=== PATIENT | female | born 1985 | race Caucasian/White ===

== ENCOUNTER 2016-09-19 15:30 | Outpatient (CLI) | payer OTHER | END 2016-09-19 15:31 | disposition home or self-care (01) | DX: N20.0 Calculus of kidney (principal) ==

== ENCOUNTER 2016-11-11 08:00 | Outpatient (CLI) | payer OTHER | END 2016-11-11 08:01 | disposition home or self-care (01) | DX: R06.02 Shortness of breath (principal) ==

== ENCOUNTER 2016-11-17 08:00 | Outpatient (CLI) | payer OTHER | END 2016-11-17 08:01 | disposition home or self-care (01) | DX: I11.9 Hypertensive heart disease without heart failure (principal); R06.02 Shortness of breath ==

== ENCOUNTER 2016-11-18 13:56 | Outpatient (CLI) | payer OTHER | END 2016-11-18 13:57 | disposition home or self-care (01) | DX: I11.9 Hypertensive heart disease without heart failure (principal) ==

== ENCOUNTER 2016-12-16 17:30 | Outpatient (CLI) | payer OTHER ==
[2016-12-16] MEDS ORDERED: IOPAMIDOL-300 100 ML VIAL IVP ONE (18:46)
== END 2016-12-16 17:31 | disposition home or self-care (01) ==
DX: N20.0 Calculus of kidney (principal)
CPT/HCPCS: 74170; Q9967

== ENCOUNTER 2017-01-08 08:00 | Outpatient (CLI) | payer MEDICAID, OTHER | END 2017-01-08 23:59 | LOC: LAB.R 08:00 | PROVIDERS: ATTEND Family Medicine | DX: I10 Essential (primary) hypertension (principal) | CPT/HCPCS: 36415; 83835 ==

== ENCOUNTER 2017-01-12 06:47 | Outpatient (CLI) | payer MEDICAID, OTHER ==
[2017-01-16 19:17] LABS: TEST RESULT REPORT (())
== END 2017-01-12 06:48 | disposition home or self-care (01) ==
LOC: LAB.WCP 06:47
PROVIDERS: ATTEND Family Medicine
DX: G89.29 Other chronic pain (principal); I11.9 Hypertensive heart disease without heart failure
CPT/HCPCS: 36415; 80306; 81599; 82384; 83835

== ENCOUNTER 2017-03-06 11:00 | Outpatient (CLI) | payer MEDICAID | END 2017-03-06 11:01 | disposition home or self-care (01) | LOC: LAB.R 11:00 | PROVIDERS: ATTEND Family Medicine | DX: R31.9 Hematuria, unspecified (principal) | CPT/HCPCS: 87086 ==

== ENCOUNTER 2017-05-22 10:00 | Outpatient (CLI) | payer MEDICAID | END 2017-05-22 10:01 | disposition home or self-care (01) | LOC: LAB.WCP 10:00 | PROVIDERS: ATTEND Family Medicine | DX: N39.0 Urinary tract infection, site not specified (principal) | CPT/HCPCS: 87086 ==

== ENCOUNTER 2017-06-09 14:05 | Outpatient (CLI) | payer MEDICAID | END 2017-06-09 14:06 | disposition home or self-care (01) | LOC: SC 14:05 | PROVIDERS: ATTEND Internal Medicine Pulmonary Disease | DX: I10 Essential (primary) hypertension (principal) | CPT/HCPCS: 99203; 99212 ==

== ENCOUNTER 2017-08-12 11:30 | Outpatient (CLI) | payer MEDICAID ==
[2017-08-12 19:03] LABS: HCT - HEMATOCRIT 43.2 % (37.0-47.0); HGB - HEMOGLOBIN 14.8 g/dL (12.0-16.0); MEAN CORPUSCULAR HEMOGLOBIN 27.8 pg (27.0-31.0); MEAN CORPUSCULAR HGB CONC 34.2 g/dL (32.0-36.0); MEAN CORPUSCULAR VOLUME 81.5 fL (81.0-99.0); MEAN PLATELET VOLUME 8.1 fL (7.9-10.8); RED BLOOD COUNT 5.31 10^6/uL (4.20-5.40); RED CELL DISTRIBUTION WIDTH 14.5 % (12.0-15.0); WHITE BLOOD COUNT 12.4 x10^3/uL (4.8-10.8)
[2017-08-12 19:10] LABS: CALCIUM 9.5 mg/dL (8.5-10.3); CREATININE 0.8 mg/dL (0.4-1.0)
== END 2017-08-12 23:59 ==
LOC: LAB.WCP 11:30
PROVIDERS: ATTEND Family Medicine
DX: R06.02 Shortness of breath (principal)
CPT/HCPCS: 36415; 80048; 83880

== ENCOUNTER 2017-08-18 13:46 | Outpatient (CLI) | payer MEDICAID | END 2017-08-18 13:47 | disposition home or self-care (01) | LOC: DI 13:46 | PROVIDERS: ATTEND Family Medicine | DX: I11.9 Hypertensive heart disease without heart failure (principal); I27.20 Pulmonary hypertension, unspecified; I07.1 Rheumatic tricuspid insufficiency | CPT/HCPCS: 93306 ==

== ENCOUNTER 2017-08-26 08:00 | Outpatient (CLI) | payer MEDICAID ==
[2017-08-26 19:36] LABS: CALCIUM 8.9 mg/dL (8.5-10.3); CREATININE 0.9 mg/dL (0.4-1.0)
== END 2017-08-26 08:01 | disposition home or self-care (01) ==
LOC: LAB.WCP 08:00
PROVIDERS: ATTEND Family Medicine
DX: E87.6 Hypokalemia (principal); R06.02 Shortness of breath
CPT/HCPCS: 36415; 80048; 83880

== ENCOUNTER 2017-09-08 14:10 | Outpatient (CLI) | payer MEDICAID ==
[2017-09-08 19:23] LABS: CALCIUM 9.4 mg/dL (8.5-10.3); CREATININE 0.9 mg/dL (0.4-1.0)
== END 2017-09-08 14:11 | disposition home or self-care (01) ==
LOC: LAB.WCP 14:10
PROVIDERS: ATTEND Family Medicine
DX: I50.9 Heart failure, unspecified (principal)
CPT/HCPCS: 36415; 80048

== ENCOUNTER 2017-09-10 10:50 | Outpatient (CLI) | payer MEDICAID | END 2017-09-10 10:51 | disposition home or self-care (01) | LOC: LAB.WCP 10:50 | PROVIDERS: ATTEND Family Medicine | DX: I50.9 Heart failure, unspecified (principal) | CPT/HCPCS: 36415; 83880 ==

== ENCOUNTER 2017-09-21 08:00 | Outpatient (CLI) | payer MEDICAID ==
[2017-09-21 12:51] LABS: CALCIUM 9.2 mg/dL (8.5-10.3); CREATININE 1.2 mg/dL (0.4-1.0)
== END 2017-09-21 08:01 | disposition home or self-care (01) ==
LOC: LAB.WCP 08:00
PROVIDERS: ATTEND Family Medicine
DX: E87.6 Hypokalemia (principal)
CPT/HCPCS: 36415; 80048

== ENCOUNTER 2017-11-25 12:58 | Emergency (ER) | payer MEDICAID ==
[2017-11-25 13:38] LABS: BASOPHILS # (AUTO) 0.2 10^3/uL (0.0-0.1); BASOPHILS % (AUTO) 0.8 %; EOSINOPHILS # (AUTO) 0.1 10^3/uL (0.0-0.7); EOSINOPHILS % (AUTO) 0.4 %; HGB - HEMOGLOBIN 12.6 g/dL (12.0-16.0); LYMPHOCYTES # (AUTO) 1.3 10^3/uL (1.5-3.5); LYMPHOCYTES % (AUTO) 7.3 %; MEAN CORPUSCULAR HEMOGLOBIN 28.4 pg (27.0-31.0); MEAN CORPUSCULAR HGB CONC 34.5 g/dL (32.0-36.0); MEAN CORPUSCULAR VOLUME 82.3 fL (81.0-99.0); MEAN PLATELET VOLUME 7.5 fL (7.9-10.8); MONOCYTES # (AUTO) 0.8 10^3/uL (0.0-1.0); MONOCYTES % (AUTO) 4.3 %; NEUTROPHILS # (AUTO) 15.9 10^3/uL (1.5-6.6); NEUTROPHILS % (AUTO) 87.2 %; PLT - PLATELET COUNT 312 10^3/uL (130-450); RED BLOOD COUNT 4.44 10^6/uL (4.20-5.40); WHITE BLOOD COUNT 18.3 x10^3/uL (4.8-10.8)
[2017-11-25 13:55] LABS: ALBUMIN 3.2 g/dL (3.2-5.5); ALBUMIN/GLOBULIN RATIO 0.7 (1.0-2.2); BILIRUBIN,TOTAL 2.7 mg/dL (0.2-1.0); CALCIUM 9.2 mg/dL (8.5-10.3); CREATININE 1.8 mg/dL (0.4-1.0); TOTAL PROTEIN 7.6 g/dL (6.7-8.2)
[2017-11-25] MEDS ORDERED: HYDROmorphone 1 MG/ML CARPUJECT IVP STA ×2 (14:09→15:57)
[2017-11-25] MEDS ORDERED: SODIUM CHLORIDE 0.9% 1,000 ML IV ONE ×2 (14:09→15:07)
[2017-11-25] MEDS ORDERED: METOCLOPRAMIDE 10 MG/2 ML VIAL IVP STA ×2 (14:10→15:59)
[2017-11-25] MEDS ORDERED: FAMOTIDINE 20 MG/50 ML 50 ML IV ONE (14:11)
[2017-11-25 14:40] LABS: MAGNESIUM 2.2 mg/dL (1.7-2.8); PHOSPHORUS 4.3 mg/dL (2.5-4.6)
[2017-11-25] MEDS ORDERED: ONDANSETRON 4 MG/2 ML VIAL IVP STA (14:45)
[2017-11-25 15:19] LABS: GLUCOSE, URINE (UA) 100 mg/dL (NEGATIVE); KETONES,URINE (UA) NEGATIVE (NEGATIVE); LEUKOCYTE ESTERASE, URINE NEGATIVE (NEGATIVE); NITRITE,URINE NEGATIVE (NEGATIVE); OCCULT BLOOD,URINE MODERATE (NEGATIVE); PROTEIN,URINE >=300 mg/dL (NEGATIVE); UROBILINOGEN,URINE 0.2 (NORMAL) E.U./dL (NORMAL)
[2017-11-25 15:24] LABS: BILIRUBIN,URINE MODERATE (NEGATIVE); CLARITY,URINE CLEAR (CLEAR); ICTOTEST,URINE POSITIVE
[2017-11-25 15:25] LABS: HCG UR QUAL NEGATIVE
[2017-11-25 15:31] LABS: BACTERIA,URINE Moderate /HPF (None Seen); SQUAMOUS EPITHELIAL CELL,UR MANY Squamous (<= Few)
[2017-11-25 15:32] LABS: AMORPHOUS SEDIMENT,UR Few /LPF; CASTS, URINE 26-50 Hyaline Casts /LPF
--- NOTE | 2017-11-25 15:35 | ED Physician Documentation ---
PD HPI MALE - Stated complaint Stated Complaint: VOMITING - Chief complaint Chief Complaint: Abd Pain PD PAST MEDICAL HISTORY - Past Medical History Cardiovascular: Hypertension Respiratory: None Neuro: Headache/migraine, Peripheral neuropathy Endocrine/Autoimmune: Other GI: None : Kidney stones HEENT: None Psych: None Musculoskeletal: None Derm: None - Past Surgical History Past Surgical History: Yes - Present Medications Home Medications: Ambulatory Orders Medication Instructions Recorded Confirmed cloNIDine HCl [Clonidine HCl] 0.1 mg PO TID 07/05/14 08/19/16 Oxycodone HCl/Acetaminophen 1 each PO DAILY PRN 07/06/14 08/19/16 [Percocet 5-325 mg Tablet] Atenolol 100 mg PO TID 08/19/16 08/19/16 Lisinopril 40 mg PO DAILY 08/19/16 08/19/16 Amiloride HCl 5 mg PO 11/25/17 Clonidine HCl [Catapres] 0.2 mg PO 11/25/17 Felodipine [Felodipine ER] 10 mg PO 11/25/17 Furosemide [Lasix] 20 mg PO ONCE 11/25/17 11/25/17 Metoclopramide [Reglan] 10 mg PO Q6H 11/25/17 11/25/17 Ondansetron [Zuplenz] 4 mg PO 11/25/17 Potassium Chloride 40 meq PO 11/25/17 Prazosin [Minipress] 5 mg PO DAILY 11/25/17 11/25/17 amLODIPine [Norvasc] 10 mg PO DAILY 11/25/17 11/25/17 hydrALAZINE [Apresoline] 50 mg PO 11/25/17 raNITIdine [Zantac] 150 mg PO DAILY 11/25/17 11/25/17 - Allergies Allergies/Adverse Reactions: Allergies Allergy/AdvReac Type Severity Reaction Status Date / Time albuterol Allergy Dizziness Verified 11/25/17 13:09 prednisone Allergy Unknown Verified 11/25/17 13:09 sumatriptan [From Imitrex] Allergy Unknown Verified 11/25/17 13:09 - Social History Does the pt smoke?: No Smoking Status: Never smoker Does the pt drink ETOH?: No Does the pt have substance abuse?: No - Immunizations Immunizations are current?: Yes - POLST Patient has POLST: No Results - Vitals Vitals: Vital Signs - 24 hr 11/25/17 13:01 Temperature 36.8 C Heart Rate 120 H Respiratory 18 Rate Blood Pressure 139/92 H O2 Saturation 100 Oxygen O2 Source Room air - Labs Labs: Laboratory Tests 11/25/17 11/25/17 11/25/17 13:34 13:34 13:34 WBC 18.3 H RBC 4.44 Hgb 12.6 Hct 36.6 L MCV 82.3 MCH 28.4 MCHC 34.5 RDW 17.0 H Plt Count 312 MPV 7.5 L Neut # 15.9 H Lymph # 1.3 L Rains # 0.8 Eos # 0.1 Baso # 0.2 H Absolute Nucleated RBC 0.00 Nucleated RBC % 0.0 Sodium 131 L Potassium 3.0 L Chloride 90 L Carbon Dioxide 28 Anion Gap 13.0 BUN 33 H Creatinine 1.8 H Estimated GFR (MDRD) 33 L Glucose 132 H Calcium 9.2 Phosphorus 4.3 Magnesium 2.2 Total Bilirubin 2.7 H AST 33 ALT 30 Alkaline Phosphatase 67 Total Protein 7.6 Albumin 3.2 Globulin 4.4 H Albumin/Globulin Ratio 0.7 L Lipase 10 L Urine Color Urine Clarity Urine pH Ur Specific [place] Urine Protein Urine Glucose (UA) Urine Ketones Urine Occult Blood Urine Nitrite Urine Bilirubin Urine Urobilinogen Ur Leukocyte Esterase Urine RBC Urine WBC Ur Squamous Epith Cells Amorphous Sediment Urine Bacteria Urine Casts Ur Microscopic Review Urine Culture Comments Urine HCG, Qual 11/25/17 11/25/17 15:00 15:00 WBC RBC Hgb Hct MCV MCH MCHC RDW Plt Count MPV Neut # Lymph # Rains # Eos # Baso # Absolute Nucleated RBC Nucleated RBC % Sodium Potassium Chloride Carbon Dioxide Anion Gap BUN Creatinine Estimated GFR (MDRD) Glucose Calcium Phosphorus Magnesium Total Bilirubin AST ALT Alkaline Phosphatase Total Protein Albumin Globulin Albumin/Globulin Ratio Lipase Urine Color YELLOW Urine Clarity CLEAR Urine pH 6.0 Ur Specific [place] 1.025 1.025 Urine Protein >=300 H Urine Glucose (UA) 100 H Urine Ketones NEGATIVE Urine Occult Blood MODERATE H Urine Nitrite NEGATIVE Urine Bilirubin MODERATE H Urine Urobilinogen 0.2 (NORMAL) Ur Leukocyte Esterase NEGATIVE Urine RBC 6-10 H Urine WBC 6-10 H Ur Squamous Epith Cells MANY Squamous H Amorphous Sediment Few Urine Bacteria Moderate H Urine Casts 26-50 Hyaline Casts Ur Microscopic Review INDICATED Urine Culture Comments NOT INDICATED Urine HCG, Qual NEGATIVE
--- NOTE | 2017-11-25 15:38 | ED Physician Documentation ---
PD HPI NVD - Stated complaint Stated Complaint: VOMITING - Chief complaint Chief Complaint: Abd Pain - History obtained from History obtained from: Patient, Family (father) - History of Present Illness Timing - onset: How many weeks ago (3 weeks of intermittent nausea and vomiting , but almost daily and has increased to few times daily and no appetite the past several days. History of severe HTN and migraines, but not prior problems with nausea/vomiting.) Timing - details: Gradual onset, Still present, Waxing and waning Associated symptoms: Loss of appetite. No: Fever, Abdominal pain, Hematemesis, Melena, Near syncope / syncope Contributing factors: No: Sick contact, Bad food, Travel, Recent antibiotics, Alcohol use Improved by: No: Vomiting Worsened by: Eating. No: Moving, Breathing Similar symptoms before: Has not had sx before (this is new for her the past few weeks. Has antiemetics Rx for use with migraines.) Review of Systems Constitutional: reports: Myalgias. denies: Fever, Chills Nose: denies: Rhinorrhea / runny nose, Congestion Throat: denies: Sore throat Respiratory: denies: Cough GI: reports: Nausea, Vomiting. denies: Abdominal Pain, Constipation, Diarrhea, Bloody / black stool : denies: Dysuria, Frequency Skin: denies: Rash, Lesions Neurologic: reports: Generalized weakness, Headache (the past couple days c/w her migraines). denies: Focal weakness, Numbness, Near syncope, Altered mental status, LOC Endocrine: denies: Weight loss Immunocompromised: denies: Immunocompromised PD PAST MEDICAL HISTORY - Past Medical History Cardiovascular: Hypertension Respiratory: None Neuro: Headache/migraine, Peripheral neuropathy Endocrine/Autoimmune: Other GI: None : Kidney stones HEENT: None Psych: None Musculoskeletal: None Derm: None - Past Surgical History Past Surgical History: Yes - Present Medications Home Medications: Ambulatory Orders Medication Instructions Recorded Confirmed cloNIDine HCl [Clonidine HCl] 0.1 mg PO TID 07/05/14 08/19/16 Oxycodone HCl/Acetaminophen 1 each PO DAILY PRN 07/06/14 08/19/16 [Percocet 5-325 mg Tablet] Atenolol 100 mg PO TID 08/19/16 08/19/16 Lisinopril 40 mg PO DAILY 08/19/16 08/19/16 Amiloride HCl 5 mg PO 11/25/17 Clonidine HCl [Catapres] 0.2 mg PO 11/25/17 Famotidine [Pepcid] 20 mg PO ONCE #30 tablet 11/25/17 Felodipine [Felodipine ER] 10 mg PO 11/25/17 Furosemide [Lasix] 20 mg PO ONCE 11/25/17 11/25/17 Metoclopramide [Reglan] 10 mg PO Q6H 11/25/17 11/25/17 Ondansetron [Zuplenz] 4 mg PO 11/25/17 Potassium Chloride 40 meq PO 11/25/17 Prazosin [Minipress] 5 mg PO DAILY 11/25/17 11/25/17 Promethazine [Phenergan] 25 mg PO Q6H PRN #30 tab 11/25/17 Sucralfate 1 gm PO QID #20 tablet 11/25/17 amLODIPine [Norvasc] 10 mg PO DAILY 11/25/17 11/25/17 hydrALAZINE [Apresoline] 50 mg PO 11/25/17 raNITIdine [Zantac] 150 mg PO DAILY 11/25/17 11/25/17 - Allergies Allergies/Adverse Reactions: Allergies Allergy/AdvReac Type Severity Reaction Status Date / Time albuterol Allergy Dizziness Verified 11/25/17 13:09 prednisone Allergy Unknown Verified 11/25/17 13:09 sumatriptan [From Imitrex] Allergy Unknown Verified 11/25/17 13:09 - Social History Does the pt smoke?: No Smoking Status: Never smoker Does the pt drink ETOH?: No Does the pt have substance abuse?: No - Family History Family history: reports: Non contributory - Immunizations Immunizations are current?: Yes - POLST Patient has POLST: No PD ED PE NORMAL - Vitals Vital signs reviewed: Yes - General General: Alert and oriented X 3, Well developed/nourished - HEENT HEENT: Ears normal, Pharynx benign. No: Moist mucous membranes - Neck Neck: Supple, no meningeal sign, No adenopathy - Cardiac Cardiac: No: RRR (tachy but regular) - Respiratory Respiratory: Clear bilaterally - Abdomen Abdomen: Normal bowel sounds, Soft, Non distended, No organomegaly, Other ( tender in upper abdomen right more than right. ) - Female Female : Deferred - Rectal Rectal: Deferred - Back Back: No CVA TTP - Derm Derm: Normal color, Warm and dry - Extremities Extremities: No tenderness to palpate, Normal ROM s pain, No edema, No calf tenderness / cord - Neuro Neuro: Alert and oriented X 3, No motor deficit, Normal speech - Psych Psych: Normal mood, Normal affect Results - Vitals Vitals: Oxygen O2 Source Room air - Labs Labs: Laboratory Tests 11/25/17 11/25/17 11/25/17 13:34 13:34 13:34 WBC 18.3 H RBC 4.44 Hgb 12.6 Hct 36.6 L MCV 82.3 MCH 28.4 MCHC 34.5 RDW 17.0 H Plt Count 312 MPV 7.5 L Neut # 15.9 H Lymph # 1.3 L Boyle # 0.8 Eos # 0.1 Baso # 0.2 H Absolute Nucleated RBC 0.00 Nucleated RBC % 0.0 Sodium 131 L Potassium 3.0 L Chloride 90 L Carbon Dioxide 28 Anion Gap 13.0 BUN 33 H Creatinine 1.8 H Estimated GFR (MDRD) 33 L Glucose 132 H Calcium 9.2 Phosphorus 4.3 Magnesium 2.2 Total Bilirubin 2.7 H AST 33 ALT 30 Alkaline Phosphatase 67 Total Protein 7.6 Albumin 3.2 Globulin 4.4 H Albumin/Globulin Ratio 0.7 L Lipase 10 L Urine Color Urine Clarity Urine pH Ur Specific [place] Urine Protein Urine Glucose (UA) Urine Ketones Urine Occult Blood Urine Nitrite Urine Bilirubin Urine Urobilinogen Ur Leukocyte Esterase Urine RBC Urine WBC Ur Squamous Epith Cells Amorphous Sediment Urine Bacteria Urine Casts Ur Microscopic Review Urine Culture Comments Urine HCG, Qual 11/25/17 11/25/17 15:00 15:00 WBC RBC Hgb Hct MCV MCH MCHC RDW Plt Count MPV Neut # Lymph # [place] # Eos # Baso # Absolute Nucleated RBC Nucleated RBC % Sodium Potassium Chloride Carbon Dioxide Anion Gap BUN Creatinine Estimated GFR (MDRD) Glucose Calcium Phosphorus Magnesium Total Bilirubin AST ALT Alkaline Phosphatase Total Protein Albumin Globulin Albumin/Globulin Ratio Lipase Urine Color YELLOW Urine Clarity CLEAR Urine pH 6.0 Ur Specific [place] 1.025 1.025 Urine Protein >=300 H Urine Glucose (UA) 100 H Urine Ketones NEGATIVE Urine Occult Blood MODERATE H Urine Nitrite NEGATIVE Urine Bilirubin MODERATE H Urine Urobilinogen 0.2 (NORMAL) Ur Leukocyte Esterase NEGATIVE Urine RBC 6-10 H Urine WBC 6-10 H Ur Squamous Epith Cells MANY Squamous H Amorphous Sediment Few Urine Bacteria Moderate H Urine Casts 26-50 Hyaline Casts Ur Microscopic Review INDICATED Urine Culture Comments NOT INDICATED Urine HCG, Qual NEGATIVE PD MEDICAL DECISION MAKING - ED course Complexity details: reviewed results, considered differential (The Bactrim she had been taking could cause elevated bili and gastric symptoms. The UTI could have been original symptoms. She is feeling better with IV fluids and meds. Feels able to try going home. ), d/w patient Departure - Departure Disposition: Home, Self Care Clinical Impression: Dehydration, Elevated bilirubin Nausea and vomiting Qualifiers: Vomiting type: bilious vomiting Qualified Code(s): R11.14 - Bilious vomiting Gastritis Qualifiers: Gastritis type: other gastritis Chronicity: acute Gastritis bleeding: without bleeding Qualified Code(s): K29.00 - Acute gastritis without bleeding Condition: Stable Record reviewed to determine appropriate education?: Yes Instructions: ED Gastritis, ED Nausea Vomiting Follow-Up: Jon Ho DO [Primary Care Provider] - Prescriptions: Famotidine [Pepcid] 20 mg PO ONCE #30 tablet Promethazine [Phenergan] 25 mg PO Q6H PRN #30 tab PRN Reason: Nausea / Vomiting Sucralfate 1 gm PO QID #20 tablet Comments: Your urine infection seems cleared at this point. He can stop the Bactrim. That may be contributing or augmenting the nausea and vomiting. It could also have caused the elevation of the bilirubin as a side effect. That could also be from just being dehydrated and vomiting as well. Stop the Bactrim at this point. Small frequent fluids. Your stomach is lightly likely gotten irritated and so we will treat it with acid reducing medicines and something to coat it ( famotidine and sucralfate). These will be for the next week or so and see how you do. He can use your usual medications for nausea or promethazine instead and see if that helps. Your potassium level was normally low here and not excessively. Continue your other usual blood pressure medicines. Your blood pressure was elevated initially but improved without specific treatment here. Recheck if not improving overall over the next couple of days. Discharge Date/Time: 11/25/17 17:55
[2017-11-25] MEDS ORDERED: SUCRALFATE 1 GM/10 ML UDC PO STA (15:57)
--- NOTE | 2017-11-25 16:21 | Ultrasound Report ---
LIMITED ABDOMEN ULTRASOUND: 11/25/2017 HISTORY: Episodic nausea. TECHNIQUE: Real-time scanning of the right upper quadrant with saved static images reviewed. FINDINGS: Normal appearing liver 14 cm in length. Normal directional portovenous blood flow. GALLBLADDER: Normal. No stones. Common bile duct: 5 mm. RIGHT KIDNEY: 9.7 cm longitudinally, no hydronephrosis, mass or obstruction. Free fluid: None. IMPRESSION: NEGATIVE RIGHT UPPER QUADRANT ULTRASOUND. TD: 11/25/2017 16:20
[2017-11-25] MEDS ORDERED: KETOROLAC 60 MG/2 ML VIAL IVP STA (16:56)
[2017-11-25 17:49] VITALS: BP 222/110
== END 2017-11-25 17:55 | disposition home or self-care (01) ==
LOC: ED 12:58
DX: E86.0 Dehydration (principal); E80.6 Other disorders of bilirubin metabolism; R11.14 Bilious vomiting; K29.00 Acute gastritis without bleeding; I10 Essential (primary) hypertension; G62.9 Polyneuropathy, unspecified
CPT/HCPCS: 36415; 76705; 80053; 81001; 81025; 82088; 83690; 83735; 84100; 84244; 85025; 96365; 96375; 96376; 99283; 99284; A9270; J1170; J2765; 81003; 87086

== ENCOUNTER 2017-12-01 16:23 | Outpatient (CLI) | payer MEDICAID ==
--- NOTE | 2017-12-02 09:09 | XRAY Report ---
TWO VIEW CHEST: 12/01/2017 CLINICAL INDICATION: Right chest pain. COMPARISON: 08/12/2017. FINDINGS: Frontal and lateral views of the chest demonstrate a mildly enlarged cardiac silhouette. There is a new right middle lobe infiltrate. No effusion or pneumothorax is seen. IMPRESSION: NEW RIGHT MIDDLE LOBE INFILTRATE. TD: 12/02/2017 09:08
== END 2017-12-01 16:24 | disposition home or self-care (01) ==
LOC: DI 16:23
PROVIDERS: ATTEND Family Medicine
DX: R07.89 Other chest pain (principal); R91.8 Other nonspecific abnormal finding of lung field
CPT/HCPCS: 71046

== ENCOUNTER 2017-12-07 08:00 | Outpatient (CLI) | payer MEDICAID ==
[2017-12-07 19:23] LABS: BASOPHILS # (AUTO) 0.1 10^3/uL (0.0-0.1); BASOPHILS % (AUTO) 0.9 %; EOSINOPHILS # (AUTO) 0.1 10^3/uL (0.0-0.7); EOSINOPHILS % (AUTO) 0.8 %; HGB - HEMOGLOBIN 10.2 g/dL (12.0-16.0); LYMPHOCYTES % (AUTO) 16.3 %; MEAN CORPUSCULAR HEMOGLOBIN 26.4 pg (27.0-31.0); MEAN CORPUSCULAR HGB CONC 32.7 g/dL (32.0-36.0); MEAN CORPUSCULAR VOLUME 80.7 fL (81.0-99.0); MEAN PLATELET VOLUME 7.7 fL (7.9-10.8); MONOCYTES # (AUTO) 0.6 10^3/uL (0.0-1.0); MONOCYTES % (AUTO) 4.9 %; NEUTROPHILS # (AUTO) 9.5 10^3/uL (1.5-6.6); NEUTROPHILS % (AUTO) 77.1 %; PLT - PLATELET COUNT 525 10^3/uL (130-450); RED BLOOD COUNT 3.86 10^6/uL (4.20-5.40); RED CELL DISTRIBUTION WIDTH 18.2 % (12.0-15.0); WHITE BLOOD COUNT 12.4 x10^3/uL (4.8-10.8)
[2017-12-07 19:48] LABS: ALBUMIN 2.3 g/dL (3.2-5.5); ALBUMIN/GLOBULIN RATIO 0.5 (1.0-2.2); BILIRUBIN,TOTAL 1.1 mg/dL (0.2-1.0); CALCIUM 8.6 mg/dL (8.5-10.3); CREATININE 1.8 mg/dL (0.4-1.0); TOTAL PROTEIN 7.2 g/dL (6.7-8.2)
== END 2017-12-07 08:01 | disposition home or self-care (01) ==
LOC: LAB.WCP 08:00
PROVIDERS: ATTEND Family Medicine
DX: I50.9 Heart failure, unspecified (principal); I27.20 Pulmonary hypertension, unspecified
CPT/HCPCS: 36415; 80053; 82088; 83880; 84244; 85025

== ENCOUNTER 2017-12-10 09:50 | Outpatient (CLI) | payer MEDICAID ==
[2017-12-10 12:57] LABS: CALCIUM 8.7 mg/dL (8.5-10.3); CREATININE 1.4 mg/dL (0.4-1.0)
== END 2017-12-10 09:51 | disposition home or self-care (01) ==
LOC: LAB.WCP 09:50
PROVIDERS: ATTEND Family Medicine
DX: I27.20 Pulmonary hypertension, unspecified (principal)
CPT/HCPCS: 36415; 80048

== ENCOUNTER 2017-12-24 08:15 | Outpatient (CLI) | payer MEDICAID | END 2017-12-24 08:16 | disposition home or self-care (01) | LOC: LAB.R 08:15 | PROVIDERS: ATTEND Family Medicine | DX: R35.0 Frequency of micturition (principal) | CPT/HCPCS: 87086 ==

== ENCOUNTER 2018-01-29 11:14 | Outpatient (CLI) | payer MEDICAID ==
[2018-01-29 19:23] LABS: CALCIUM 9.5 mg/dL (8.5-10.3); CREATININE 1.2 mg/dL (0.4-1.0)
== END 2018-01-29 11:15 | disposition home or self-care (01) ==
LOC: LAB.WCP 11:14
PROVIDERS: ATTEND Internal Medicine Nephrology
DX: E87.0 Hyperosmolality and hypernatremia (principal); I10 Essential (primary) hypertension
CPT/HCPCS: 36415; 80048

== ENCOUNTER 2018-02-09 14:49 | Outpatient (CLI) | payer MEDICAID ==
[2018-02-09 19:10] LABS: CALCIUM 9.6 mg/dL (8.5-10.3); CREATININE 1.5 mg/dL (0.4-1.0)
== END 2018-02-09 14:50 | disposition home or self-care (01) ==
LOC: LAB.WCP 14:49
PROVIDERS: ATTEND Internal Medicine Nephrology
DX: E87.6 Hypokalemia (principal)
CPT/HCPCS: 36415; 80048

== ENCOUNTER 2018-02-22 10:30 | Outpatient (CLI) | payer MEDICAID ==
[2018-02-22 12:23] LABS: BILIRUBIN,URINE NEGATIVE (NEGATIVE); GLUCOSE, URINE (UA) NEGATIVE (NEGATIVE); KETONES,URINE (UA) NEGATIVE (NEGATIVE); LEUKOCYTE ESTERASE, URINE NEGATIVE (NEGATIVE); NITRITE,URINE NEGATIVE (NEGATIVE); OCCULT BLOOD,URINE TRACE-INTA (NEGATIVE); PROTEIN,URINE >=300 mg/dL (NEGATIVE); UROBILINOGEN,URINE 0.2 (NORMAL) E.U./dL (NORMAL)
[2018-02-22 12:29] LABS: ALBUMIN 3.9 g/dL (3.2-5.5); CALCIUM 9.3 mg/dL (8.5-10.3); CREATININE 1.6 mg/dL (0.4-1.0); PHOSPHORUS 3.7 mg/dL (2.5-4.6)
[2018-02-22 12:34] LABS: CLARITY,URINE CLEAR (CLEAR)
[2018-02-22 12:35] LABS: BACTERIA,URINE Few /HPF (None Seen); SQUAMOUS EPITHELIAL CELL,UR MANY Squamous (<= Few); WBC CLUMPS,URINE PRESENT
[2018-02-22 12:38] LABS: BASOPHILS # (AUTO) 0.1 10^3/uL (0.0-0.1); BASOPHILS % (AUTO) 0.8 %; EOSINOPHILS # (AUTO) 0.3 10^3/uL (0.0-0.7); EOSINOPHILS % (AUTO) 2.3 %; HGB - HEMOGLOBIN 11.7 g/dL (12.0-16.0); LYMPHOCYTES # (AUTO) 1.4 10^3/uL (1.5-3.5); LYMPHOCYTES % (AUTO) 11.4 %; MEAN CORPUSCULAR HEMOGLOBIN 28.1 pg (27.0-31.0); MEAN CORPUSCULAR HGB CONC 34.4 g/dL (32.0-36.0); MEAN CORPUSCULAR VOLUME 81.6 fL (81.0-99.0); MEAN PLATELET VOLUME 7.4 fL (7.9-10.8); MONOCYTES # (AUTO) 0.5 10^3/uL (0.0-1.0); MONOCYTES % (AUTO) 4.3 %; NEUTROPHILS # (AUTO) 10.3 10^3/uL (1.5-6.6); NEUTROPHILS % (AUTO) 81.2 %; PLT - PLATELET COUNT 303 10^3/uL (130-450); RED BLOOD COUNT 4.17 10^6/uL (4.20-5.40); WHITE BLOOD COUNT 12.7 x10^3/uL (4.8-10.8)
[2018-02-22 13:37] LABS: CREATININE,URINE 74.8 mg/dL; MICROALBUM/CREATININE RATIO,UR 6032.1 ug/mg (<30.0); MICROALBUMIN,URINE 451.2 mg/dL (0-300.0)
[2018-02-22 13:55] LABS: PROTEIN/CREATININE RATIO,URINE 7.5 (<=0.2)
== END 2018-02-22 10:31 | disposition home or self-care (01) ==
LOC: LAB.WCP 10:30
PROVIDERS: ATTEND Internal Medicine Nephrology
DX: E87.6 Hypokalemia (principal); I10 Essential (primary) hypertension
CPT/HCPCS: 36415; 80069; 81001; 81003; 82043; 82570; 83010; 83615; 84156; 85025; 87086

== ENCOUNTER 2018-03-29 10:55 | Outpatient (CLI) | payer MEDICAID ==
[2018-03-29 19:33] LABS: CALCIUM 9.2 mg/dL (8.5-10.3); CREATININE 1.5 mg/dL (0.4-1.0)
== END 2018-03-29 10:56 | disposition home or self-care (01) ==
LOC: LAB.WCP 10:55
PROVIDERS: ATTEND Internal Medicine Nephrology
DX: E87.6 Hypokalemia (principal)
CPT/HCPCS: 36415; 80048

== ENCOUNTER → 2018-06-21 | Outpatient (CLI) | payer MEDICAID ==
[2018-06-21 19:33] LABS: ALBUMIN 4.4 g/dL (3.2-5.5); CREATININE 1.7 mg/dL (0.4-1.0); PHOSPHORUS 2.9 mg/dL (2.5-4.6)
== END ==
LOC: LAB.WCP 08:00
PROVIDERS: ATTEND Internal Medicine Nephrology
DX: N18.3 Chronic kidney disease, stage 3 (moderate) (principal)
CPT/HCPCS: 36415; 80069

== ENCOUNTER 2018-06-28 08:00 | Outpatient (CLI) | payer MEDICAID ==
[2018-06-28 19:10] LABS: ALBUMIN 4.1 g/dL (3.2-5.5); CALCIUM 9.3 mg/dL (8.5-10.3); CREATININE 1.7 mg/dL (0.4-1.0); PHOSPHORUS 3.8 mg/dL (2.5-4.6)
== END 2018-06-28 23:59 | disposition home or self-care (01) ==
LOC: LAB.WCP 08:00
PROVIDERS: ATTEND Internal Medicine Nephrology
DX: N18.3 Chronic kidney disease, stage 3 (moderate) (principal)
CPT/HCPCS: 36415; 80069

== ENCOUNTER 2018-07-05 10:09 | Outpatient (CLI) | payer MEDICAID ==
[2018-07-05] MEDS ORDERED: BARIUM SULFATE 176 GM BOTTLE PO ONE (11:54)
[2018-07-05] MEDS ORDERED: BARIUM SULFATE 135 ML BOTTLE PO ONE (11:54)
[2018-07-05] MEDS ORDERED: SIMETHICONE/SOD BICARB/CIT AC 1 EACH PACKET PO ONE (11:54)
[2018-07-05 12:46] LABS: ALBUMIN 4.4 g/dL (3.2-5.5); CALCIUM 9.7 mg/dL (8.5-10.3); CREATININE 1.8 mg/dL (0.4-1.0)
--- NOTE | 2018-07-05 15:16 | XRAY Report ---
Reason: NAUSEA, CHRONIC Procedure Date: 07/05/2018 Accession Number: [id number] / [id number] Procedure: FL - UGI SBFT W/Air CPT Code: FULL RESULT: EXAM: SMALL BOWEL FOLLOW-THROUGH EXAM DATE: 07/05/2018 11:51 AM. CLINICAL HISTORY: Nausea, chronic. COMPARISONS: UGI SBFT W/AIR 07/05/2018 11:17 AM. TECHNIQUE: Routine small bowel follow-through technique. Fluoroscopy Time: 1 minute 40 seconds. 19 images FINDINGS: Esophagus: Esophagus is normally distensible with normal motility pattern. Normal esophageal mucosa. No ulcers identified. Stomach: Normal gastric mucosal pattern. No ulcers identified. Duodenum: Normal duodenal mucosal pattern. No ulcers or diverticula identified. Jejunum: Normal mucosal pattern. No masses or obstruction. Ileum: Normal mucosal pattern. No masses or obstruction. The ileocecal valve is normal with passage of contrast into the cecum identified. Other: None. IMPRESSION: Normal upper GI and small bowel follow-through. RADIA
== END 2018-07-05 10:10 | disposition home or self-care (01) ==
LOC: DI 10:09
PROVIDERS: ATTEND Family Medicine
DX: R11.0 Nausea (principal); N18.3 Chronic kidney disease, stage 3 (moderate)
CPT/HCPCS: 36415; 74249; 80069; A9270

== ENCOUNTER 2018-07-12 11:44 | Outpatient (CLI) | payer MEDICAID ==
[2018-07-12 20:03] LABS: ALBUMIN 3.8 g/dL (3.2-5.5); CALCIUM 9.1 mg/dL (8.5-10.3); CREATININE 1.5 mg/dL (0.4-1.0); PHOSPHORUS 3.2 mg/dL (2.5-4.6)
== END 2018-07-12 11:45 | disposition home or self-care (01) ==
LOC: LAB.WCP 11:44
PROVIDERS: ATTEND Internal Medicine Nephrology
DX: N18.3 Chronic kidney disease, stage 3 (moderate) (principal)
CPT/HCPCS: 36415; 80069

== ENCOUNTER 2018-07-19 08:00 | Outpatient (CLI) | payer MEDICAID ==
[2018-07-19 19:11] LABS: ALBUMIN 4.5 g/dL (3.2-5.5); CALCIUM 9.2 mg/dL (8.5-10.3); CREATININE 1.6 mg/dL (0.4-1.0); PHOSPHORUS 3.8 mg/dL (2.5-4.6)
== END 2018-07-19 08:01 | disposition home or self-care (01) ==
LOC: LAB.WCP 08:00
PROVIDERS: ATTEND Internal Medicine Nephrology
DX: N18.3 Chronic kidney disease, stage 3 (moderate) (principal)
CPT/HCPCS: 36415; 80069

== ENCOUNTER 2018-08-09 08:00 | Outpatient (CLI) | payer MEDICAID ==
[2018-08-09 19:44] LABS: ALBUMIN 3.8 g/dL (3.2-5.5); CALCIUM 9.2 mg/dL (8.5-10.3); CREATININE 1.3 mg/dL (0.4-1.0); PHOSPHORUS 3.4 mg/dL (2.5-4.6)
== END 2018-08-09 23:59 | disposition home or self-care (01) ==
LOC: LAB.WCP 08:00
PROVIDERS: ATTEND Internal Medicine Nephrology
DX: N18.3 Chronic kidney disease, stage 3 (moderate) (principal)
CPT/HCPCS: 36415; 80069

== ENCOUNTER 2018-08-13 10:20 | Outpatient (CLI) | payer MEDICAID ==
[2018-08-13 12:59] LABS: ALBUMIN 3.7 g/dL (3.2-5.5); CALCIUM 9.1 mg/dL (8.5-10.3); CREATININE 1.7 mg/dL (0.4-1.0); PHOSPHORUS 3.4 mg/dL (2.5-4.6)
== END 2018-08-13 23:59 | disposition home or self-care (01) ==
LOC: LAB.WCP 10:20
PROVIDERS: ATTEND Internal Medicine Nephrology
DX: N18.3 Chronic kidney disease, stage 3 (moderate) (principal)
CPT/HCPCS: 36415; 80069

== ENCOUNTER 2018-08-23 08:00 | Outpatient (CLI) | payer MEDICAID ==
[2018-08-23 15:14] LABS: ALBUMIN 3.6 g/dL (3.2-5.5); CALCIUM 9.1 mg/dL (8.5-10.3); CREATININE 1.7 mg/dL (0.4-1.0); PHOSPHORUS 3.9 mg/dL (2.5-4.6)
== END 2018-08-23 23:59 | disposition home or self-care (01) ==
LOC: LAB.WCP 08:00
PROVIDERS: ATTEND Internal Medicine Nephrology
DX: N18.3 Chronic kidney disease, stage 3 (moderate) (principal)
CPT/HCPCS: 36415; 80069

== ENCOUNTER 2018-10-05 14:25 | Outpatient (CLI) | payer MEDICAID ==
[2018-10-05 19:23] LABS: CALCIUM 9.8 mg/dL (8.5-10.3); CREATININE 2.2 mg/dL (0.4-1.0); PHOSPHORUS 4.3 mg/dL (2.5-4.6)
== END 2018-10-05 14:26 | disposition home or self-care (01) ==
LOC: LAB.WCP 14:25
PROVIDERS: ATTEND Internal Medicine Nephrology
DX: N18.3 Chronic kidney disease, stage 3 (moderate) (principal)
CPT/HCPCS: 36415; 80069

== ENCOUNTER 2018-10-29 14:48 | Outpatient (CLI) | payer MEDICAID ==
[2018-10-29 19:54] LABS: ALBUMIN 3.5 g/dL (3.2-5.5); CALCIUM 8.8 mg/dL (8.5-10.3); CREATININE 2.3 mg/dL (0.4-1.0)
== END 2018-10-29 23:59 | disposition home or self-care (01) ==
LOC: LAB.WCP 14:48
PROVIDERS: ATTEND Internal Medicine Nephrology
DX: N18.3 Chronic kidney disease, stage 3 (moderate) (principal)
CPT/HCPCS: 36415; 80069

== ENCOUNTER 2018-11-08 08:00 | Outpatient (CLI) | payer MEDICARE, MEDICAID ==
[2018-11-08 19:37] LABS: ALBUMIN 3.8 g/dL (3.2-5.5); CALCIUM 9.3 mg/dL (8.5-10.3); CREATININE 2.3 mg/dL (0.4-1.0); PHOSPHORUS 3.7 mg/dL (2.5-4.6)
== END 2018-11-08 23:59 | disposition home or self-care (01) ==
LOC: LAB.WCP 08:00
PROVIDERS: ATTEND Internal Medicine Nephrology
DX: N18.3 Chronic kidney disease, stage 3 (moderate) (principal)
CPT/HCPCS: 36415; 80069

== ENCOUNTER 2018-11-09 08:00 | Outpatient (CLI) | payer MEDICARE, MEDICAID ==
[2018-11-09 19:11] LABS: HGB - HEMOGLOBIN 12.5 g/dL (12.0-16.0); MEAN CORPUSCULAR HEMOGLOBIN 29.4 pg (27.0-31.0); MEAN CORPUSCULAR HGB CONC 34.6 g/dL (32.0-36.0); MEAN CORPUSCULAR VOLUME 84.8 fL (81.0-99.0); MEAN PLATELET VOLUME 7.9 fL (7.9-10.8); RED BLOOD COUNT 4.25 10^6/uL (4.20-5.40); RED CELL DISTRIBUTION WIDTH 15.6 % (12.0-15.0)
[2018-11-09 19:23] LABS: CREATININE 2.4 mg/dL (0.4-1.0)
== END 2018-11-09 23:59 | disposition home or self-care (01) ==
LOC: LAB.WCP 08:00
PROVIDERS: ATTEND Family Medicine
DX: N18.3 Chronic kidney disease, stage 3 (moderate) (principal)
CPT/HCPCS: 36415; 80048; 85027

== ENCOUNTER 2018-11-15 08:00 | Outpatient (CLI) | payer MEDICARE, MEDICAID ==
[2018-11-15 19:14] LABS: ALBUMIN 4.1 g/dL (3.2-5.5); CALCIUM 9.1 mg/dL (8.5-10.3); CREATININE 2.3 mg/dL (0.4-1.0); PHOSPHORUS 4.9 mg/dL (2.5-4.6)
== END 2018-11-15 23:59 | disposition home or self-care (01) ==
LOC: LAB.WCP 08:00
PROVIDERS: ATTEND Internal Medicine Nephrology
DX: N18.3 Chronic kidney disease, stage 3 (moderate) (principal)
CPT/HCPCS: 36415; 80069

== ENCOUNTER 2018-11-29 08:00 | Outpatient (CLI) | payer MEDICARE, MEDICAID ==
[2018-11-29 19:42] LABS: CALCIUM 9.5 mg/dL (8.5-10.3); CREATININE 2.8 mg/dL (0.4-1.0); PHOSPHORUS 3.9 mg/dL (2.5-4.6)
== END 2018-11-29 23:59 | disposition home or self-care (01) ==
LOC: LAB.WCP 08:00
PROVIDERS: ATTEND Internal Medicine Nephrology
DX: N18.3 Chronic kidney disease, stage 3 (moderate) (principal)
CPT/HCPCS: 36415; 80069

== ENCOUNTER 2018-12-08 11:51 | Outpatient (CLI) | payer MEDICARE, MEDICAID ==
[2018-12-08 19:20] LABS: ALBUMIN 3.9 g/dL (3.2-5.5); CALCIUM 9.4 mg/dL (8.5-10.3); CREATININE 2.6 mg/dL (0.4-1.0); PHOSPHORUS 3.6 mg/dL (2.5-4.6)
== END 2018-12-08 11:52 | disposition home or self-care (01) ==
LOC: LAB.WCP 11:51
PROVIDERS: ATTEND Internal Medicine Nephrology
DX: N18.3 Chronic kidney disease, stage 3 (moderate) (principal)
CPT/HCPCS: 36415; 80069

== ENCOUNTER 2018-12-08 11:55 | Outpatient (CLI) | payer MEDICARE, MEDICAID ==
--- NOTE | 2018-12-08 12:32 | XRAY Report ---
Reason: CONGESTIVE HEART FAILURE Procedure Date: 12/08/2018 Accession Number: [id number] / [id number] Procedure: WCP - Chest 2 View X-Ray CPT Code: 29420 FULL RESULT: EXAM: CHEST RADIOGRAPHY EXAM DATE: 12/08/2018 12:09 PM. CLINICAL HISTORY: CONGESTIVE HEART FAILURE. COMPARISON: CHEST 2 VIEW PA/LAT 12/07/2017 1:33 PM. TECHNIQUE: 2 views. FINDINGS: Lungs/Pleura: No focal parenchymal opacity. Normal pulmonary vasculature. No evidence of pulmonary edema. No pleural effusions. Mediastinum: Redemonstration of mild to moderate cardiac enlargement. Other: None. IMPRESSION: 1. No evidence of congestive heart failure. No acute abnormality. 2. No change of mild to moderate cardiac enlargement. No pleural effusions. RADIA
== END 2018-12-08 11:56 | disposition home or self-care (01) ==
LOC: DI.WCP 11:55
PROVIDERS: ATTEND Family Medicine
DX: I50.9 Heart failure, unspecified (principal); I51.7 Cardiomegaly; N18.3 Chronic kidney disease, stage 3 (moderate)
CPT/HCPCS: 36415; 71046; 80069

== ENCOUNTER 2019-01-06 11:47 | Outpatient (CLI) | payer MEDICARE, MEDICAID ==
[2019-01-06 19:24] LABS: ALBUMIN 3.2 g/dL (3.2-5.5); CALCIUM 8.9 mg/dL (8.5-10.3); CREATININE 3.1 mg/dL (0.4-1.0); PHOSPHORUS 3.9 mg/dL (2.5-4.6)
== END 2019-01-06 11:48 | disposition home or self-care (01) ==
LOC: LAB.WCP 11:47
PROVIDERS: ATTEND Internal Medicine Nephrology
DX: N18.3 Chronic kidney disease, stage 3 (moderate) (principal)
CPT/HCPCS: 36415; 80069

== ENCOUNTER 2019-02-03 11:01 | Outpatient (CLI) | payer MEDICARE, MEDICAID ==
[2019-02-03 19:28] LABS: ALBUMIN 3.9 g/dL (3.2-5.5); CALCIUM 9.2 mg/dL (8.5-10.3); CREATININE 3.2 mg/dL (0.4-1.0); PHOSPHORUS 5.4 mg/dL (2.5-4.6)
[2019-02-03 19:30] LABS: CREATININE,URINE 35.3 mg/dL
== END 2019-02-03 11:02 | disposition home or self-care (01) ==
LOC: LAB.WCP 11:01
PROVIDERS: ATTEND Internal Medicine Nephrology
DX: I12.9 Hypertensive chronic kidney disease with stage 1 through stage 4 chronic kidney disease, or unspecified chronic kidney disease (principal); N18.3 Chronic kidney disease, stage 3 (moderate)
CPT/HCPCS: 36415; 80069; 81599; 82570; 84156; 84540

== ENCOUNTER 2019-03-03 10:22 | Outpatient (CLI) | payer MEDICARE, MEDICAID ==
[2019-03-03 12:50] LABS: ALBUMIN 4.3 g/dL (3.2-5.5); CALCIUM 9.7 mg/dL (8.5-10.3); CREATININE 3.4 mg/dL (0.4-1.0); PHOSPHORUS 5.3 mg/dL (2.5-4.6)
== END 2019-03-03 23:59 | disposition home or self-care (01) ==
LOC: LAB.WCP 10:22
PROVIDERS: ATTEND Internal Medicine Nephrology
DX: N18.3 Chronic kidney disease, stage 3 (moderate) (principal)
CPT/HCPCS: 36415; 80069

== ENCOUNTER 2019-03-24 | Outpatient (CLI) | payer MEDICARE, MEDICAID | END 2019-03-24 23:59 | disposition home or self-care (01) | DX: N18.3 Chronic kidney disease, stage 3 (moderate) (principal) | CPT/HCPCS: 36415; 80069; 82570; 84156 ==

== ENCOUNTER 2019-03-28 | Outpatient (CLI) | payer MEDICARE, MEDICAID | END 2019-03-28 23:59 | disposition home or self-care (01) | DX: N18.3 Chronic kidney disease, stage 3 (moderate) (principal) ==

== ENCOUNTER 2019-03-30 09:13 | Outpatient (CLI) | payer MEDICARE, MEDICAID ==
[2019-03-30 12:44] LABS: CALCIUM 9.5 mg/dL (8.5-10.3); CREATININE 3.4 mg/dL (0.4-1.0); PHOSPHORUS 4.7 mg/dL (2.5-4.6)
[2019-03-30 13:52] LABS: CREATININE,URINE 63.6 mg/dL; PROTEIN/CREATININE RATIO,URINE 6.2 (<=0.2)
== END 2019-03-30 23:59 | disposition home or self-care (01) ==
LOC: LAB.WCP 09:13
PROVIDERS: ATTEND Internal Medicine Nephrology
DX: N18.3 Chronic kidney disease, stage 3 (moderate) (principal)
CPT/HCPCS: 36415; 80069; 82570; 84156

== ENCOUNTER 2019-04-04 08:00 | Outpatient (CLI) | payer MEDICARE, MEDICAID ==
[2019-04-04 18:59] LABS: ALBUMIN 3.9 g/dL (3.2-5.5); CALCIUM 9.6 mg/dL (8.5-10.3); CREATININE 3.3 mg/dL (0.4-1.0); PHOSPHORUS 5.4 mg/dL (2.5-4.6)
[2019-04-04 19:31] LABS: CREATININE,URINE 88.9 mg/dL; PROTEIN/CREATININE RATIO,URINE 1.9 (<=0.2)
== END 2019-04-04 23:59 | disposition home or self-care (01) ==
LOC: LAB.WCP 08:00
PROVIDERS: ATTEND Internal Medicine Nephrology
DX: N18.3 Chronic kidney disease, stage 3 (moderate) (principal)
CPT/HCPCS: 36415; 80069; 82043; 82570; 84156

== ENCOUNTER 2019-04-06 08:00 | Outpatient (CLI) | payer MEDICARE, MEDICAID ==
[2019-04-06 19:17] LABS: CALCIUM 9.8 mg/dL (8.5-10.3); CREATININE 3.4 mg/dL (0.4-1.0); PHOSPHORUS 5.2 mg/dL (2.5-4.6)
[2019-04-06 21:09] LABS: CREATININE,URINE 120.1 mg/dL; MICROALBUM/CREATININE RATIO,UR 2059.1 ug/mg (<30.0); MICROALBUMIN,URINE 247.3 mg/dL (0-300.0)
== END 2019-04-06 23:59 | disposition home or self-care (01) ==
LOC: LAB.WCP 08:00
PROVIDERS: ATTEND Internal Medicine Nephrology
DX: N18.3 Chronic kidney disease, stage 3 (moderate) (principal)
CPT/HCPCS: 36415; 80069; 82043; 82570

== ENCOUNTER 2019-04-08 08:00 | Outpatient (CLI) | payer MEDICARE, MEDICAID ==
[2019-04-08 18:43] LABS: ALBUMIN 4.2 g/dL (3.2-5.5); CALCIUM 9.2 mg/dL (8.5-10.3); CREATININE 3.7 mg/dL (0.4-1.0); PHOSPHORUS 6.2 mg/dL (2.5-4.6)
[2019-04-08 19:00] LABS: CREATININE,URINE 75.9 mg/dL; PROTEIN/CREATININE RATIO,URINE 1.6 (<=0.2)
== END 2019-04-08 23:59 | disposition home or self-care (01) ==
LOC: LAB.WCP 08:00
PROVIDERS: ATTEND Internal Medicine Nephrology
DX: N18.3 Chronic kidney disease, stage 3 (moderate) (principal)
CPT/HCPCS: 36415; 80069; 82570; 84156

== ENCOUNTER → 2019-04-22 | Outpatient (CLI) | payer MEDICARE, MEDICAID ==
[2019-04-22 12:43] LABS: ALBUMIN 4.6 g/dL (3.2-5.5); CALCIUM 9.4 mg/dL (8.5-10.3); CREATININE 3.6 mg/dL (0.4-1.0); PHOSPHORUS 5.7 mg/dL (2.5-4.6)
[2019-04-22 13:41] LABS: CREATININE,URINE 67.1 mg/dL; PROTEIN/CREATININE RATIO,URINE 2.7 (<=0.2)
== END ==
LOC: LAB.WCP 08:00
PROVIDERS: ATTEND Internal Medicine Nephrology
DX: N18.3 Chronic kidney disease, stage 3 (moderate) (principal)
CPT/HCPCS: 36415; 80069; 82570; 84156

== ENCOUNTER 2019-04-26 08:00 | Outpatient (CLI) | payer MEDICARE, MEDICAID ==
[2019-04-26 13:03] LABS: ALBUMIN 4.3 g/dL (3.2-5.5); CALCIUM 9.6 mg/dL (8.5-10.3); CREATININE 3.4 mg/dL (0.4-1.0); PHOSPHORUS 3.4 mg/dL (2.5-4.6)
[2019-04-26 13:56] LABS: CREATININE,URINE 80.5 mg/dL
== END 2019-04-26 23:59 ==
LOC: LAB.WCP 08:00
PROVIDERS: ATTEND Internal Medicine Nephrology
DX: N18.3 Chronic kidney disease, stage 3 (moderate) (principal)
CPT/HCPCS: 36415; 80069; 82570; 84156

== ENCOUNTER → 2019-04-28 | Outpatient (CLI) | payer MEDICARE, MEDICAID ==
[2019-04-28 19:07] LABS: ALBUMIN 3.8 g/dL (3.2-5.5); CALCIUM 9.4 mg/dL (8.5-10.3); CREATININE 3.7 mg/dL (0.4-1.0); PHOSPHORUS 3.7 mg/dL (2.5-4.6)
[2019-04-28 20:03] LABS: PROTEIN/CREATININE RATIO,URINE 1.8 (<=0.2)
== END ==
LOC: LAB.WCP 08:00
PROVIDERS: ATTEND Internal Medicine Nephrology
DX: N18.3 Chronic kidney disease, stage 3 (moderate) (principal)
CPT/HCPCS: 36415; 80069; 82570; 84156

== ENCOUNTER → 2019-05-02 | Outpatient (CLI) | payer MEDICARE, MEDICAID ==
[2019-05-02 12:33] LABS: CALCIUM 9.6 mg/dL (8.5-10.3); CREATININE 3.3 mg/dL (0.4-1.0); PHOSPHORUS 4.8 mg/dL (2.5-4.6)
[2019-05-02 12:42] LABS: CREATININE,URINE 63.3 mg/dL; PROTEIN/CREATININE RATIO,URINE 2.2 (<=0.2)
== END ==
LOC: LAB.WCP 08:00
PROVIDERS: ATTEND Internal Medicine Nephrology
DX: N18.3 Chronic kidney disease, stage 3 (moderate) (principal)
CPT/HCPCS: 36415; 80069; 82570; 84156

== ENCOUNTER 2019-05-09 08:00 | Outpatient (CLI) | payer MEDICARE, MEDICAID ==
[2019-05-09 18:42] LABS: ALBUMIN 3.9 g/dL (3.2-5.5); CALCIUM 9.1 mg/dL (8.5-10.3); CREATININE 3.8 mg/dL (0.4-1.0); PHOSPHORUS 4.3 mg/dL (2.5-4.6)
[2019-05-09 19:15] LABS: CREATININE,URINE 143.7 mg/dL; PROTEIN/CREATININE RATIO,URINE 7.1 (<=0.2)
== END 2019-05-09 08:01 | disposition home or self-care (01) ==
LOC: LAB.WCP 08:00
PROVIDERS: ATTEND Internal Medicine Nephrology
DX: N18.3 Chronic kidney disease, stage 3 (moderate) (principal)
CPT/HCPCS: 36415; 80069; 82570; 84156

== ENCOUNTER 2019-05-12 08:00 | Outpatient (CLI) | payer MEDICARE, MEDICAID ==
[2019-05-12 18:56] LABS: ALBUMIN 3.4 g/dL (3.2-5.5); CALCIUM 9.1 mg/dL (8.5-10.3); CREATININE 3.6 mg/dL (0.4-1.0); PHOSPHORUS 3.4 mg/dL (2.5-4.6)
[2019-05-12 19:49] LABS: CREATININE,URINE 106.5 mg/dL
== END 2019-05-12 23:59 | disposition home or self-care (01) ==
LOC: LAB.WCP 08:00
PROVIDERS: ATTEND Internal Medicine Nephrology
DX: N18.3 Chronic kidney disease, stage 3 (moderate) (principal); R05 Cough; R50.9 Fever, unspecified; I51.7 Cardiomegaly
CPT/HCPCS: 36415; 71046; 80069; 82570; 84156

== ENCOUNTER 2019-05-12 10:55 | Outpatient (CLI) | payer MEDICARE, MEDICAID ==
--- NOTE | 2019-05-12 16:09 | XRAY Report ---
Reason: COUGH WITH FEVER Procedure Date: 05/12/2019 Accession Number: [id number] / [id number] Procedure: WCP - Chest 2 View X-Ray CPT Code: 00301 FULL RESULT: EXAM: CHEST RADIOGRAPHY EXAM DATE: 05/12/2019 10:55 AM. CLINICAL HISTORY: COUGH WITH FEVER. COMPARISON: CHEST 2 VIEW 12/08/2018 11:49 AM CHEST 2 VIEW PA/LAT 12/07/2017 1:33 PM CHEST 2 VIEW 12/01/2017 4:28 PM. TECHNIQUE: 2 views. FINDINGS: Lungs/Pleura: Question early right middle lobe airspace process. No other focal opacities evident. No pleural effusion. No pneumothorax. Normal volumes. Mediastinum: Mild cardiomegaly Other: Unremarkable bony structures. IMPRESSION: Question early right middle lobe infiltrate. Mild cardiomegaly. Otherwise negative. RADIA
== END 2019-05-12 23:59 | disposition home or self-care (01) ==
LOC: DI.WCP 10:55 → EDSTATUS 13:40 → DI.WCP 23:59
PROVIDERS: ATTEND Family Medicine
DX: R05 Cough (principal); R50.9 Fever, unspecified; I51.7 Cardiomegaly
CPT/HCPCS: 71046

== ENCOUNTER 2019-05-28 08:46 | Outpatient (CLI) | payer MEDICARE, MEDICAID | END 2019-05-28 08:47 | disposition critical access hospital (66) | LOC: EMS 08:46 | PROVIDERS: ATTEND Surgery | DX: R56.9 Unspecified convulsions (principal) | CPT/HCPCS: A0425; A0429 ==

== ENCOUNTER 2019-05-28 09:31 | Emergency (ER) | payer MEDICARE, MEDICAID ==
[2019-05-28] MEDS ORDERED: LORazepam 2 MG/ML VIAL ONE (10:07)
[2019-05-28] MEDS ORDERED: LORazepam 2 MG/ML VIAL IVP STA ×2 (10:10→13:04)
--- NOTE | 2019-05-28 10:10 | ED Physician Documentation ---
PD HPI SEIZURE - Stated complaint Stated Complaint: SZ - Chief complaint Chief Complaint: Neuro - History obtained from History obtained from: Patient, Family, EMS - History of Present Illness Timing - onset: Today Witnessed: Witnessed Number of seizures: Lasted minutes (2-3), Other (still post ictal) Description of seizure activity: Generalized, Tonic clonic Injury during seizure: None Pain level max: 0 Pain level now: 0 Associated symptoms: Unknown History of seizures: First seizure Contributing factors: Other (hypertension) - Additional information Additional information: 34-year-old female with a long-standing history of uncontrolled hypertension. Unclear etiology of her hypertension. Has chronic renal failure as well. Also has congestive heart failure and intracranial hypertension. Has had genetic testing which is normal. She is followed by the [facility]. She is currently seeing Dr. Barragan of nephrology there. She has been worked up for pheochromocytoma as well. She is on multiple medications for her blood pressure, but they are still having difficulty controlling this. Has never had a seizure before. Review of Systems Unable to obtain: Confused (post ictal) Respiratory: reports: Cough (Recently treated for possible pneumonia.) PD PAST MEDICAL HISTORY - Past Medical History Cardiovascular: Hypertension Respiratory: None Endocrine/Autoimmune: Other GI: None : Kidney stones HEENT: None Psych: None Musculoskeletal: None Derm: None - Past Surgical History Past Surgical History: Yes - Present Medications Home Medications: Ambulatory Orders Medication Instructions Recorded Confirmed cloNIDine HCl [Clonidine HCl] 0.1 mg PO TID 07/05/14 08/19/16 Oxycodone HCl/Acetaminophen 1 each PO DAILY PRN 07/06/14 08/19/16 [Percocet 5-325 mg Tablet] Atenolol 100 mg PO TID 08/19/16 08/19/16 Lisinopril 40 mg PO DAILY 08/19/16 08/19/16 Amiloride HCl 5 mg PO 11/25/17 Clonidine HCl [Catapres] 0.2 mg PO 11/25/17 Famotidine [Pepcid] 20 mg PO ONCE #30 tablet 11/25/17 Felodipine [Felodipine ER] 10 mg PO 11/25/17 Furosemide [Lasix] 20 mg PO ONCE 11/25/17 11/25/17 Metoclopramide [Reglan] 10 mg PO Q6H 11/25/17 11/25/17 Ondansetron [Zuplenz] 4 mg PO 11/25/17 Potassium Chloride 40 meq PO 11/25/17 Prazosin [Minipress] 5 mg PO DAILY 11/25/17 11/25/17 Promethazine [Phenergan] 25 mg PO Q6H PRN #30 tab 11/25/17 Sucralfate 1 gm PO QID #20 tablet 11/25/17 amLODIPine [Norvasc] 10 mg PO DAILY 11/25/17 11/25/17 hydrALAZINE [Apresoline] 50 mg PO 11/25/17 raNITIdine [Zantac] 150 mg PO DAILY 11/25/17 11/25/17 - Allergies Allergies/Adverse Reactions: Allergies Allergy/AdvReac Type Severity Reaction Status Date / Time albuterol Allergy Dizziness Verified 11/25/17 13:09 prednisone Allergy Unknown Verified 11/25/17 13:09 sumatriptan [From Imitrex] Allergy Unknown Verified 11/25/17 13:09 - Social History Does the pt smoke?: No Smoking Status: Never smoker Does the pt drink ETOH?: No Does the pt have substance abuse?: No - Immunizations Immunizations are current?: Yes - POLST Patient has POLST: No PD ED PE NORMAL - Vitals Vital signs reviewed: Yes - General General: Other (alert, confused) - HEENT HEENT: Atraumatic, PERRL, Moist mucous membranes, Pharynx benign - Neck Neck: Supple, no meningeal sign, No bony TTP - Cardiac Cardiac: RRR, Strong equal pulses - Respiratory Respiratory: No respiratory distress, Clear bilaterally - Abdomen Abdomen: Soft, Non tender, Non distended - Derm Derm: Warm and dry - Extremities Extremities: No edema - Neuro Neuro: Other (alert, MAEE) Eye Opening: Spontaneous Motor: Withdraws to Pain Verbal: Confused GCS Score: 12 Results - Vitals Vitals: Vital Signs - 24 hr 05/28/19 05/28/19 05/28/19 09:38 10:22 10:29 Temperature 36.2 C L Heart Rate 97 89 87 Respiratory 16 18 14 Rate Blood Pressure 199/160 H 158/146 H 202/134 H O2 Saturation 99 100 100 05/28/19 05/28/19 05/28/19 10:30 10:36 10:41 Temperature Heart Rate 92 88 86 Respiratory 16 15 15 Rate Blood Pressure 189/118 H 181/110 H 160/96 H O2 Saturation 97 100 98 05/28/19 05/28/19 05/28/19 11:00 11:20 11:30 Temperature Heart Rate 83 88 89 Respiratory 18 18 18 Rate Blood Pressure 148/91 H 168/110 H 170/110 H O2 Saturation 100 100 100 05/28/19 05/28/19 05/28/19 11:54 12:00 12:23 Temperature Heart Rate 84 78 79 Respiratory 17 13 13 Rate Blood Pressure 170/117 H 180/131 H 188/124 H O2 Saturation 100 100 98 05/28/19 05/28/19 05/28/19 12:43 13:00 13:23 Temperature Heart Rate 80 81 81 Respiratory 13 15 15 Rate Blood Pressure 166/104 H 152/115 H 169/108 H O2 Saturation 97 100 100 05/28/19 05/28/19 05/28/19 13:30 13:46 14:00 Temperature Heart Rate 78 79 79 Respiratory 14 18 13 Rate Blood Pressure 171/109 H 162/105 H 160/101 H O2 Saturation 97 100 100 05/28/19 14:30 Temperature Heart Rate 79 Respiratory 14 Rate Blood Pressure 160/91 H O2 Saturation 100 Oxygen O2 Source Room air - EKG (time done) 1008 Rate: Rate (enter#) (89) Rhythm: NSR [place]: Normal Intervals: Normal MA QRS: LVH Ischemia: T wave inversion (II, III, aVF) - Labs Labs: Laboratory Tests 05/28/19 05/28/19 05/28/19 10:15 10:15 10:15 WBC 17.3 H RBC 3.94 L Hgb 11.6 L Hct 32.3 L MCV 82.0 MCH 29.4 MCHC 35.9 RDW 15.7 H Plt Count 250 MPV 10.7 Neut # (Auto) 15.1 H Lymph # (Auto) 1.2 L [place] # (Auto) 0.8 Eos # (Auto) 0.0 Baso # (Auto) 0.1 Absolute Nucleated RBC 0.04 Nucleated RBC % 0.2 Sodium 129 L Potassium 3.7 Chloride 92 L Carbon Dioxide 17 L Anion Gap 20.0 H BUN 116 H* Creatinine 6.4 H Estimated GFR (MDRD) 8 L Glucose 136 H Calcium 8.6 Total Bilirubin 1.7 H AST 29 ALT 41 Alkaline Phosphatase 64 Total Protein 6.8 Albumin 3.4 Globulin 3.4 Albumin/Globulin Ratio 1.0 Lipase 30 TSH 1.08 Urine Color Urine Clarity Urine pH Ur Specific [place] Urine Protein Urine Glucose (UA) Urine Ketones Urine Occult Blood Urine Nitrite Urine Bilirubin Urine Urobilinogen Ur Leukocyte Esterase Urine RBC Urine WBC Ur Squamous Epith Cells Amorphous Sediment Urine Bacteria Ur Microscopic Review Urine Culture Comments Urine HCG, Qual Salicylates < 4.0 Urine Opiates Screen Ur Oxycodone Screen Urine Methadone Screen Ur Propoxyphene Screen Acetaminophen < 10 L Ur Barbiturates Screen Ur Tricyclics Screen Ur Phencyclidine Scrn Ur Amphetamine Screen U Methamphetamines Scrn U Benzodiazepines Scrn Urine Cocaine Screen U Cannabinoids Screen Ethyl Alcohol < 5.0 05/28/19 05/28/19 10:24 10:24 WBC RBC Hgb Hct MCV MCH MCHC RDW Plt Count MPV Neut # (Auto) Lymph # (Auto) [place] # (Auto) Eos # (Auto) Baso # (Auto) Absolute Nucleated RBC Nucleated RBC % Sodium Potassium Chloride Carbon Dioxide Anion Gap BUN Creatinine Estimated GFR (MDRD) Glucose Calcium Total Bilirubin AST ALT Alkaline Phosphatase Total Protein Albumin Globulin Albumin/Globulin Ratio Lipase TSH Urine Color YELLOW Urine Clarity HAZY Urine pH 5.5 Ur Specific [place] 1.025 Urine Protein >=300 H Urine Glucose (UA) NEGATIVE Urine Ketones NEGATIVE Urine Occult Blood LARGE H Urine Nitrite NEGATIVE Urine Bilirubin NEGATIVE Urine Urobilinogen 0.2 (NORMAL) Ur Leukocyte Esterase NEGATIVE Urine RBC 0-5 Urine WBC 0-3 Ur Squamous Epith Cells RARE Squamous Amorphous Sediment Moderate Urine Bacteria Few Ur Microscopic Review INDICATED Urine Culture Comments NOT INDICATED Urine HCG, Qual NEGATIVE Salicylates Urine Opiates Screen NEGATIVE Ur Oxycodone Screen POSITIVE H Urine Methadone Screen NEGATIVE Ur Propoxyphene Screen NEGATIVE Acetaminophen Ur Barbiturates Screen NEGATIVE Ur Tricyclics Screen NEGATIVE Ur Phencyclidine Scrn NEGATIVE Ur Amphetamine Screen NEGATIVE U Methamphetamines Scrn NEGATIVE U Benzodiazepines Scrn NEGATIVE Urine Cocaine Screen NEGATIVE U Cannabinoids Screen NEGATIVE Ethyl Alcohol - Rads (name of study) head CT Radiology: Prelim report reviewed, EMP read contemporaneously, See rad report (1. 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 Comparison with prior exams, if available, is recommended to evaluate for interval change. Brain MRI may also be useful for better evaluation. 2. Focal density in the right thor, compatible with small acute hemorrhage or calcification. Comparison to prior exams could establish chronicity. 3. Ventricles are small in size and cerebral sulci are effaced, concerning for cerebral swelling. ) PD MEDICAL DECISION MAKING - ED course Complexity details: reviewed results, re-evaluated patient, considered differential, d/w patient, d/w family ED course: 34-year-old female with a long-standing history of uncontrolled hypertension. Unclear etiology. She appears to have significant endorgan damage secondary to this. Has chronic renal failure. 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 She has been maintained on IV drips to control her blood pressures in the past. She is followed at the [facility]. Given a gram of Keppra here. Started on a nicardipine drip to control blood pressure. No acute findings on head CT. Call placed to [facility] at 10:30 AM for transfer. At approximately 1230, Dr. Sánchez, tie puller, accepts in transfer. COBRA forms completed. Patient was maintained on a nicardipine drip. Blood pressure is maintained at approximately 160-180. Patient transferred via [facility] - Critical Care Time(min): 65 Time Includes: Direct patient care, Review records, Reassess patient, Document care, Coordinate care, Medical consult, See progress note Data interpretation: See progress note Procedures included in critical care time: See progress note Procedures excluded from critical care time: See progress note Departure - Departure Disposition: 02 Transfer Acute Care Hosp Clinical Impression: Seizure, Hypertensive emergency, Uremia Acute renal failure Qualifiers: Acute renal failure type: unspecified Qualified Code(s): N17.9 - Acute kidney failure, unspecified Leukocytosis Qualifiers: Leukocytosis type: unspecified Qualified Code(s): D72.829 - Elevated white blood cell count, unspecified Condition: Stable Discharge Date/Time: 05/28/19 14:56
[2019-05-28] MEDS ORDERED: niCARdipine 20 MG/200 ML 20 MG/200 ML BAG IV STA (10:15)
[2019-05-28] MEDS ORDERED: levETIRAcetam INJ 1,000 MG in SODIUM CHLORIDE 0.9% 100ML 100 ML IV STA (10:15)
[2019-05-28 10:20] LABS: BASOPHILS # (AUTO) 0.1 10^3/uL (0.0-0.1); BASOPHILS % (AUTO) 0.3 %; EOSINOPHILS % (AUTO) 0.1 %; HGB - HEMOGLOBIN 11.6 g/dL (12.0-16.0); LYMPHOCYTES # (AUTO) 1.2 10^3/uL (1.5-3.5); LYMPHOCYTES % (AUTO) 6.6 %; MEAN CORPUSCULAR HEMOGLOBIN 29.4 pg (27.0-31.0); MEAN CORPUSCULAR HGB CONC 35.9 g/dL (32.0-36.0); MEAN PLATELET VOLUME 10.7 fL (7.9-10.8); MONOCYTES # (AUTO) 0.8 10^3/uL (0.0-1.0); MONOCYTES % (AUTO) 4.4 %; NEUTROPHILS # (AUTO) 15.1 10^3/uL (1.5-6.6); PLT - PLATELET COUNT 250 10^3/uL (130-450); RED BLOOD COUNT 3.94 10^6/uL (4.20-5.40); RED CELL DISTRIBUTION WIDTH 15.7 % (12.0-15.0); WHITE BLOOD COUNT 17.3 x10^3/uL (4.8-10.8)
[2019-05-28 10:29] LABS: MUDS CUTOFF CONCENTRATIONS CUTOFF CONC BELOW:
[2019-05-28 10:32] LABS: BILIRUBIN,URINE NEGATIVE (NEGATIVE); GLUCOSE, URINE (UA) NEGATIVE (NEGATIVE); KETONES,URINE (UA) NEGATIVE (NEGATIVE); LEUKOCYTE ESTERASE, URINE NEGATIVE (NEGATIVE); NITRITE,URINE NEGATIVE (NEGATIVE); OCCULT BLOOD,URINE LARGE (NEGATIVE); PH,URINE 5.5 PH (5.0-7.5); PROTEIN,URINE >=300 mg/dL (NEGATIVE); UROBILINOGEN,URINE 0.2 (NORMAL) E.U./dL (NORMAL)
[2019-05-28 10:38] LABS: CLARITY,URINE HAZY (CLEAR); HCG UR QUAL NEGATIVE
[2019-05-28 10:43] LABS: AMPHETAMINE SCREEN,URINE NEGATIVE (NEGATIVE); BENZODIAZEPINES SCREEN, URINE NEGATIVE (NEGATIVE); COCAINE SCREEN URINE NEGATIVE (NEGATIVE); METHADONE SCREEN, URINE NEGATIVE (NEGATIVE); METHAMPHETAMINES SCREEN, URINE NEGATIVE (NEGATIVE); OPIATE SCREEN, URINE NEGATIVE (NEGATIVE); OXYCODONE SCREEN, URINE POSITIVE (NEGATIVE); PROPOXYPHENE SCREEN, URINE NEGATIVE (NEGATIVE); TRICYCLIC ANTIDEPRESSANT,URINE NEGATIVE (NEGATIVE)
[2019-05-28 10:50] LABS: CALCIUM 8.6 mg/dL (8.5-10.3); CARBON DIOXIDE - CO2 17 mmol/L (21-32); CHLORIDE 92 mmol/L (101-111); CREATININE 6.4 mg/dL (0.4-1.0); GFR - MDRD 8 (>89); GLUCOSE 136 mg/dL (70-100); SODIUM 129 mmol/L (135-145)
[2019-05-28 10:51] LABS: ACETAMINOPHEN < 10 ug/mL (10-30); ALBUMIN 3.4 g/dL (3.2-5.5); ALKALINE PHOSPHATASE 64 IU/L (42-121); ALT ALANINE AMINOTRANSFERASE 41 IU/L (10-60); AST ASPARTATE AMINOTRANSFERASE 29 IU/L (10-42); BILIRUBIN,TOTAL 1.7 mg/dL (0.2-1.0); LIPASE 30 U/L (22-51); SALICYLATE < 4.0 mg/dL; TOTAL PROTEIN 6.8 g/dL (6.7-8.2)
[2019-05-28 10:57] LABS: BUN - BLOOD UREA NITROGEN 116 mg/dL (6-20)
[2019-05-28] MEDS ORDERED: SODIUM CHLORIDE 0.9% 1,000 ML IV ONE (10:57)
[2019-05-28] MEDS ORDERED: SODIUM CHLORIDE 0.9% 500 ML IV ONE (10:57)
--- NOTE | 2019-05-28 11:02 | CT Report ---
Reason: seizure Procedure Date: 05/28/2019 Accession Number: [id number] / [id number] Procedure: CT - HEAD WO CPT Code: FULL RESULT: EXAM: CT HEAD EXAM DATE: 05/28/2019 10:07 AM. CLINICAL HISTORY: 34-year-old woman with seizure and acute hypertension. Patient has history of long-standing leukoencephalopathy and/or PRES-like syndrome and history of stroke. COMPARISON: None available. TECHNIQUE: Multiaxial CT images were obtained from the foramen magnum to the vertex. Reformats: Sagittal and coronal. IV contrast: None. In accordance with CT protocol optimization, one or more of the following dose reduction techniques were utilized for this exam: automated exposure control, adjustment of mA and/or KV based on patient size, or use of iterative reconstructive technique. FINDINGS: Parenchyma: The parenchyma demonstrates diffuse, ill-defined hypoattenuation in the deep cerebral white matter, likely involving the cortex in the left frontal and left occipital lobes. Otherwise, kerr-white differentiation is intact. The thor is also diffusely hypoattenuating, but beam hardening artifact from skull base limits specificity. Focal hyperdensity with ill-defined margins in the right thor measures 4 mm and is compatible with acute hemorrhage or calcification. Ventricles and Extra-axial Spaces: No midline shift. Ventricles are symmetric but small in size. Cerebral sulci are diffusely effaced, right side worse on left. No extra-axial hemorrhage or fluid collection. Orbits: Unremarkable. Sinuses: Paranasal sinuses and mastoid air cells are clear. Extracranial Soft Tissues and Bones: Soft tissues are unremarkable. No fractures. IMPRESSION: 1. 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 Comparison with prior exams, if available, is recommended to evaluate for interval change. Brain MRI may also be useful for better evaluation. 2. Focal density in the right thor, compatible with small acute hemorrhage or calcification. Comparison to prior exams could establish chronicity. 3. Ventricles are small in size and cerebral sulci are effaced, concerning for cerebral swelling. RADIA The call report notification system was initiated by Dr. Hamlet Casillas at 10:50 AM on 05/28/2019. The above call report findings were discussed with Santana Mcneil by Dr. Hamlet Casillas at 11:01 AM on 05/28/2019.
[2019-05-28 11:03] LABS: RBC,URINE 0-5 /HPF (0-5)
[2019-05-28 11:04] LABS: AMORPHOUS SEDIMENT,UR Moderate /LPF; BACTERIA,URINE Few /HPF (None Seen); SQUAMOUS EPITHELIAL CELL,UR RARE Squamous (<= Few)
[2019-05-28 14:34] VITALS: BP 160/91
== END 2019-05-28 14:56 | disposition short-term general hospital (02) ==
LOC: EDUNIT# → ED 09:31
DX: R56.9 Unspecified convulsions (principal); N17.9 Acute kidney failure, unspecified; D72.829 Elevated white blood cell count, unspecified; I13.0 Hypertensive heart and chronic kidney disease with heart failure and stage 1 through stage 4 chronic kidney disease, or unspecified chronic kidney disease; N18.9 Chronic kidney disease, unspecified; I50.9 Heart failure, unspecified; G93.2 Benign intracranial hypertension
CPT/HCPCS: 36415; 51701; 70450; 81001; 81025; 83690; 93005; 96361; 96365; 96375; 96376; 99285; 99291; J2060; 80053; 80306; 80307; 80320; 80329; 81003; 84443; 85025; 87086

== ENCOUNTER 2019-06-09 08:00 | Outpatient (CLI) | payer MEDICARE, MEDICAID ==
[2019-06-09 11:53] LABS: BASOPHILS # (AUTO) 0.1 10^3/uL (0.0-0.1); BASOPHILS % (AUTO) 0.6 %; EOSINOPHILS # (AUTO) 0.1 10^3/uL (0.0-0.7); EOSINOPHILS % (AUTO) 1.2 %; HGB - HEMOGLOBIN 11.8 g/dL (12.0-16.0); LYMPHOCYTES # (AUTO) 2.5 10^3/uL (1.5-3.5); LYMPHOCYTES % (AUTO) 24.9 %; MEAN CORPUSCULAR HEMOGLOBIN 28.6 pg (27.0-31.0); MEAN CORPUSCULAR VOLUME 92.3 fL (81.0-99.0); MEAN PLATELET VOLUME 10.6 fL (7.9-10.8); MONOCYTES # (AUTO) 0.8 10^3/uL (0.0-1.0); MONOCYTES % (AUTO) 7.8 %; NEUTROPHILS # (AUTO) 6.4 10^3/uL (1.5-6.6); NEUTROPHILS % (AUTO) 65.1 %; PLT - PLATELET COUNT 263 10^3/uL (130-450); RED BLOOD COUNT 4.13 10^6/uL (4.20-5.40); RED CELL DISTRIBUTION WIDTH 15.6 % (12.0-15.0); WHITE BLOOD COUNT 9.9 x10^3/uL (4.8-10.8)
[2019-06-09 12:22] LABS: ALBUMIN 3.5 g/dL (3.2-5.5); CALCIUM 9.3 mg/dL (8.5-10.3); CREATININE 6.7 mg/dL (0.4-1.0); PHOSPHORUS 8.4 mg/dL (2.5-4.6)
[2019-06-09 14:08] LABS: PROTEIN/CREATININE RATIO,URINE 1.5 (<=0.2)
[2019-06-10 11:12] LABS: HEPATITIS C ANTIBODY NON-REACTIVE (NON-REACTIVE)
[2019-06-10 11:14] LABS: HEPATITIS B SURFACE ANTIGEN NON-REACTIVE (NON-REACTIVE)
== END 2019-06-09 23:59 | disposition home or self-care (01) ==
LOC: LAB.WCP 08:00
PROVIDERS: ATTEND Internal Medicine Nephrology
DX: N18.5 Chronic kidney disease, stage 5 (principal)
CPT/HCPCS: 36415; 80069; 82570; 84156; 85025; 86317; 86704; 86803; 87340

== ENCOUNTER 2019-06-22 13:46 | Outpatient (CLI) | payer MEDICARE, MEDICAID ==
[2019-06-22 19:04] LABS: BASOPHILS # (AUTO) 0.1 10^3/uL (0.0-0.1); BASOPHILS % (AUTO) 1.1 %; EOSINOPHILS # (AUTO) 0.2 10^3/uL (0.0-0.7); EOSINOPHILS % (AUTO) 3.5 %; HGB - HEMOGLOBIN 10.7 g/dL (12.0-16.0); LYMPHOCYTES # (AUTO) 1.5 10^3/uL (1.5-3.5); LYMPHOCYTES % (AUTO) 23.8 %; MEAN CORPUSCULAR HEMOGLOBIN 28.2 pg (27.0-31.0); MEAN CORPUSCULAR HGB CONC 31.3 g/dL (32.0-36.0); MEAN PLATELET VOLUME 9.8 fL (7.9-10.8); MONOCYTES # (AUTO) 0.5 10^3/uL (0.0-1.0); MONOCYTES % (AUTO) 8.6 %; NEUTROPHILS # (AUTO) 3.9 10^3/uL (1.5-6.6); NEUTROPHILS % (AUTO) 62.8 %; PLT - PLATELET COUNT 276 10^3/uL (130-450); RED CELL DISTRIBUTION WIDTH 14.6 % (12.0-15.0); WHITE BLOOD COUNT 6.3 x10^3/uL (4.8-10.8)
[2019-06-22 19:12] LABS: ALBUMIN 4.2 g/dL (3.2-5.5); ALBUMIN/GLOBULIN RATIO 1.1 (1.0-2.2); BILIRUBIN,TOTAL 0.8 mg/dL (0.2-1.0); CALCIUM 9.7 mg/dL (8.5-10.3); CREATININE 5.3 mg/dL (0.4-1.0); PHOSPHORUS 5.2 mg/dL (2.5-4.6)
== END 2019-06-22 23:59 ==
LOC: LAB.WCP 13:46
PROVIDERS: ATTEND Specialist
DX: I12.0 Hypertensive chronic kidney disease with stage 5 chronic kidney disease or end stage renal disease (principal); N18.6 End stage renal disease
CPT/HCPCS: 36415; 80053; 84100; 85025

== ENCOUNTER 2019-07-25 08:00 | Outpatient (CLI) | payer MEDICAID, MEDICARE ==
[2019-07-25 19:13] LABS: BASOPHILS % (AUTO) 0.6 %; EOSINOPHILS # (AUTO) 0.3 10^3/uL (0.0-0.7); EOSINOPHILS % (AUTO) 5.1 %; HGB - HEMOGLOBIN 10.8 g/dL (12.0-16.0); LYMPHOCYTES # (AUTO) 1.6 10^3/uL (1.5-3.5); MEAN CORPUSCULAR HEMOGLOBIN 29.3 pg (27.0-31.0); MEAN CORPUSCULAR HGB CONC 33.6 g/dL (32.0-36.0); MEAN PLATELET VOLUME 9.2 fL (7.9-10.8); MONOCYTES # (AUTO) 0.5 10^3/uL (0.0-1.0); MONOCYTES % (AUTO) 7.1 %; NEUTROPHILS % (AUTO) 61.9 %; PLT - PLATELET COUNT 269 10^3/uL (130-450); RED BLOOD COUNT 3.69 10^6/uL (4.20-5.40); RED CELL DISTRIBUTION WIDTH 13.8 % (12.0-15.0); WHITE BLOOD COUNT 6.5 x10^3/uL (4.8-10.8)
[2019-07-25 19:26] LABS: ALBUMIN/GLOBULIN RATIO 1.2 (1.0-2.2); BILIRUBIN,TOTAL 0.9 mg/dL (0.2-1.0); CALCIUM 9.6 mg/dL (8.5-10.3); CREATININE 3.9 mg/dL (0.4-1.0); PHOSPHORUS 5.2 mg/dL (2.5-4.6); TOTAL PROTEIN 7.4 g/dL (6.7-8.2)
== END 2019-07-25 23:59 | disposition home or self-care (01) ==
LOC: LAB.WCP 08:00
PROVIDERS: ATTEND Specialist
DX: I12.0 Hypertensive chronic kidney disease with stage 5 chronic kidney disease or end stage renal disease (principal); N18.6 End stage renal disease
CPT/HCPCS: 36415; 80053; 84100; 85025

== ENCOUNTER 2019-08-08 14:01 | Outpatient (CLI) | payer MEDICARE ==
[2019-08-08 18:32] LABS: BASOPHILS # (AUTO) 0.1 10^3/uL (0.0-0.1); EOSINOPHILS # (AUTO) 0.4 10^3/uL (0.0-0.7); HGB - HEMOGLOBIN 11.6 g/dL (12.0-16.0); LYMPHOCYTES # (AUTO) 1.2 10^3/uL (1.5-3.5); LYMPHOCYTES % (AUTO) 13.7 %; MEAN CORPUSCULAR HEMOGLOBIN 28.9 pg (27.0-31.0); MEAN CORPUSCULAR VOLUME 84.8 fL (81.0-99.0); MEAN PLATELET VOLUME 9.8 fL (7.9-10.8); MONOCYTES # (AUTO) 0.5 10^3/uL (0.0-1.0); NEUTROPHILS # (AUTO) 6.9 10^3/uL (1.5-6.6); PLT - PLATELET COUNT 275 10^3/uL (130-450); RED BLOOD COUNT 4.02 10^6/uL (4.20-5.40); RED CELL DISTRIBUTION WIDTH 12.8 % (12.0-15.0)
[2019-08-08 18:45] LABS: ALBUMIN 4.2 g/dL (3.2-5.5); ALBUMIN/GLOBULIN RATIO 1.2 (1.0-2.2); CALCIUM 9.4 mg/dL (8.5-10.3); CREATININE 4.4 mg/dL (0.4-1.0); PHOSPHORUS 3.9 mg/dL (2.5-4.6); TOTAL PROTEIN 7.8 g/dL (6.7-8.2)
== END 2019-08-08 23:59 | disposition home or self-care (01) ==
LOC: LAB.WCP 14:01
PROVIDERS: ATTEND Specialist
DX: I12.0 Hypertensive chronic kidney disease with stage 5 chronic kidney disease or end stage renal disease (principal); N18.6 End stage renal disease
CPT/HCPCS: 36415; 80053; 84100; 85025

== ENCOUNTER 2019-08-26 13:35 | Outpatient (CLI) | payer MEDICARE ==
[2019-08-26 18:42] LABS: BASOPHILS # (AUTO) 0.1 10^3/uL (0.0-0.1); BASOPHILS % (AUTO) 0.8 %; EOSINOPHILS # (AUTO) 0.5 10^3/uL (0.0-0.7); EOSINOPHILS % (AUTO) 6.2 %; HGB - HEMOGLOBIN 11.2 g/dL (12.0-16.0); LYMPHOCYTES # (AUTO) 1.1 10^3/uL (1.5-3.5); LYMPHOCYTES % (AUTO) 15.3 %; MEAN CORPUSCULAR HEMOGLOBIN 28.9 pg (27.0-31.0); MEAN CORPUSCULAR HGB CONC 33.9 g/dL (32.0-36.0); MEAN CORPUSCULAR VOLUME 85.1 fL (81.0-99.0); MEAN PLATELET VOLUME 9.5 fL (7.9-10.8); MONOCYTES # (AUTO) 0.4 10^3/uL (0.0-1.0); MONOCYTES % (AUTO) 4.8 %; NEUTROPHILS # (AUTO) 5.4 10^3/uL (1.5-6.6); NEUTROPHILS % (AUTO) 72.6 %; PLT - PLATELET COUNT 267 10^3/uL (130-450); RED BLOOD COUNT 3.88 10^6/uL (4.20-5.40); RED CELL DISTRIBUTION WIDTH 13.1 % (12.0-15.0); WHITE BLOOD COUNT 7.5 x10^3/uL (4.8-10.8)
[2019-08-26 18:49] LABS: ALBUMIN 4.3 g/dL (3.2-5.5); ALBUMIN/GLOBULIN RATIO 1.2 (1.0-2.2); CALCIUM 8.9 mg/dL (8.5-10.3); CREATININE 4.3 mg/dL (0.4-1.0); PHOSPHORUS 4.9 mg/dL (2.5-4.6); TOTAL PROTEIN 7.8 g/dL (6.7-8.2)
== END 2019-08-26 23:59 | disposition home or self-care (01) ==
LOC: LAB.WCP 13:35
PROVIDERS: ATTEND Specialist
DX: I12.0 Hypertensive chronic kidney disease with stage 5 chronic kidney disease or end stage renal disease (principal); N18.6 End stage renal disease
CPT/HCPCS: 36415; 80053; 84100; 85025

== ENCOUNTER 2019-09-15 08:00 | Outpatient (CLI) | payer MEDICARE ==
[2019-09-15 18:49] LABS: BASOPHILS # (AUTO) 0.1 10^3/uL (0.0-0.1); BASOPHILS % (AUTO) 0.8 %; EOSINOPHILS # (AUTO) 0.6 10^3/uL (0.0-0.7); EOSINOPHILS % (AUTO) 7.5 %; HGB - HEMOGLOBIN 11.4 g/dL (12.0-16.0); LYMPHOCYTES # (AUTO) 1.4 10^3/uL (1.5-3.5); LYMPHOCYTES % (AUTO) 18.2 %; MEAN CORPUSCULAR HEMOGLOBIN 29.8 pg (27.0-31.0); MEAN CORPUSCULAR HGB CONC 32.7 g/dL (32.0-36.0); MEAN CORPUSCULAR VOLUME 91.4 fL (81.0-99.0); MEAN PLATELET VOLUME 9.6 fL (7.9-10.8); MONOCYTES # (AUTO) 0.4 10^3/uL (0.0-1.0); MONOCYTES % (AUTO) 5.9 %; NEUTROPHILS # (AUTO) 5.1 10^3/uL (1.5-6.6); NEUTROPHILS % (AUTO) 67.5 %; PLT - PLATELET COUNT 238 10^3/uL (130-450); RED BLOOD COUNT 3.82 10^6/uL (4.20-5.40); WHITE BLOOD COUNT 7.5 x10^3/uL (4.8-10.8)
[2019-09-15 19:00] LABS: ALBUMIN 4.2 g/dL (3.2-5.5); ALBUMIN/GLOBULIN RATIO 1.2 (1.0-2.2); BILIRUBIN,TOTAL 0.6 mg/dL (0.2-1.0); CALCIUM 9.4 mg/dL (8.5-10.3); PHOSPHORUS 4.1 mg/dL (2.5-4.6); TOTAL PROTEIN 7.6 g/dL (6.7-8.2)
== END 2019-09-15 23:59 | disposition home or self-care (01) ==
LOC: LAB.WCP 08:00
PROVIDERS: ATTEND Specialist
DX: I12.0 Hypertensive chronic kidney disease with stage 5 chronic kidney disease or end stage renal disease (principal); N18.6 End stage renal disease
CPT/HCPCS: 36415; 80053; 84100; 85025

== ENCOUNTER 2019-09-30 14:23 | Outpatient (CLI) | payer MEDICARE, BC ==
[2019-09-30 19:04] LABS: BASOPHILS % (AUTO) 0.7 %; EOSINOPHILS # (AUTO) 0.3 10^3/uL (0.0-0.7); EOSINOPHILS % (AUTO) 5.2 %; HGB - HEMOGLOBIN 10.8 g/dL (12.0-16.0); LYMPHOCYTES # (AUTO) 1.4 10^3/uL (1.5-3.5); LYMPHOCYTES % (AUTO) 23.6 %; MEAN CORPUSCULAR HEMOGLOBIN 29.2 pg (27.0-31.0); MEAN CORPUSCULAR HGB CONC 33.4 g/dL (32.0-36.0); MEAN CORPUSCULAR VOLUME 87.3 fL (81.0-99.0); MEAN PLATELET VOLUME 10.1 fL (7.9-10.8); MONOCYTES # (AUTO) 0.4 10^3/uL (0.0-1.0); MONOCYTES % (AUTO) 6.9 %; NEUTROPHILS # (AUTO) 3.9 10^3/uL (1.5-6.6); NEUTROPHILS % (AUTO) 63.4 %; PLT - PLATELET COUNT 268 10^3/uL (130-450); RED CELL DISTRIBUTION WIDTH 12.4 % (12.0-15.0); WHITE BLOOD COUNT 6.1 x10^3/uL (4.8-10.8)
[2019-09-30 19:49] LABS: ALBUMIN 4.7 g/dL (3.2-5.5); ALBUMIN/GLOBULIN RATIO 1.4 (1.0-2.2); BILIRUBIN,TOTAL 0.8 mg/dL (0.2-1.0); CALCIUM 9.1 mg/dL (8.5-10.3); CREATININE 5.1 mg/dL (0.4-1.0); PHOSPHORUS 5.2 mg/dL (2.5-4.6)
== END 2019-09-30 23:59 | disposition home or self-care (01) ==
LOC: LAB.WCP 14:23
PROVIDERS: ATTEND Specialist
DX: I12.0 Hypertensive chronic kidney disease with stage 5 chronic kidney disease or end stage renal disease (principal); N18.6 End stage renal disease
CPT/HCPCS: 36415; 80053; 84100; 85025

== ENCOUNTER 2019-10-19 12:46 | Outpatient (CLI) | payer MEDICARE, BC ==
[2019-10-19 18:32] LABS: BASOPHILS # (AUTO) 0.1 10^3/uL (0.0-0.1); BASOPHILS % (AUTO) 0.8 %; EOSINOPHILS # (AUTO) 0.3 10^3/uL (0.0-0.7); EOSINOPHILS % (AUTO) 3.6 %; HGB - HEMOGLOBIN 11.9 g/dL (12.0-16.0); LYMPHOCYTES % (AUTO) 27.2 %; MEAN CORPUSCULAR HEMOGLOBIN 30.1 pg (27.0-31.0); MEAN CORPUSCULAR HGB CONC 34.5 g/dL (32.0-36.0); MEAN CORPUSCULAR VOLUME 87.1 fL (81.0-99.0); MEAN PLATELET VOLUME 9.6 fL (7.9-10.8); MONOCYTES # (AUTO) 0.6 10^3/uL (0.0-1.0); MONOCYTES % (AUTO) 8.1 %; NEUTROPHILS # (AUTO) 4.3 10^3/uL (1.5-6.6); NEUTROPHILS % (AUTO) 59.9 %; PLT - PLATELET COUNT 240 10^3/uL (130-450); RED BLOOD COUNT 3.96 10^6/uL (4.20-5.40); WHITE BLOOD COUNT 7.3 x10^3/uL (4.8-10.8)
[2019-10-19 19:06] LABS: ALBUMIN 4.6 g/dL (3.2-5.5); ALBUMIN/GLOBULIN RATIO 1.2 (1.0-2.2); BILIRUBIN,TOTAL 0.8 mg/dL (0.2-1.0); CALCIUM 8.9 mg/dL (8.5-10.3); CREATININE 4.9 mg/dL (0.4-1.0); PHOSPHORUS 6.2 mg/dL (2.5-4.6); TOTAL PROTEIN 8.4 g/dL (6.7-8.2)
== END 2019-10-19 23:59 | disposition home or self-care (01) ==
LOC: LAB.WCP 12:46
PROVIDERS: ATTEND Specialist
DX: I12.0 Hypertensive chronic kidney disease with stage 5 chronic kidney disease or end stage renal disease (principal); N18.6 End stage renal disease
CPT/HCPCS: 36415; 80053; 84100; 85025

== ENCOUNTER 2019-10-27 14:59 | Outpatient (CLI) | payer MEDICARE, BC ==
[2019-10-27 18:49] LABS: BASOPHILS # (AUTO) 0.1 10^3/uL (0.0-0.1); BASOPHILS % (AUTO) 0.7 %; EOSINOPHILS # (AUTO) 0.3 10^3/uL (0.0-0.7); HGB - HEMOGLOBIN 11.5 g/dL (12.0-16.0); LYMPHOCYTES # (AUTO) 1.4 10^3/uL (1.5-3.5); LYMPHOCYTES % (AUTO) 15.9 %; MEAN CORPUSCULAR HEMOGLOBIN 29.9 pg (27.0-31.0); MEAN CORPUSCULAR HGB CONC 34.1 g/dL (32.0-36.0); MEAN CORPUSCULAR VOLUME 87.5 fL (81.0-99.0); MEAN PLATELET VOLUME 9.7 fL (7.9-10.8); MONOCYTES # (AUTO) 0.6 10^3/uL (0.0-1.0); MONOCYTES % (AUTO) 6.6 %; NEUTROPHILS # (AUTO) 6.7 10^3/uL (1.5-6.6); NEUTROPHILS % (AUTO) 73.4 %; PLT - PLATELET COUNT 277 10^3/uL (130-450); RED BLOOD COUNT 3.85 10^6/uL (4.20-5.40); RED CELL DISTRIBUTION WIDTH 12.1 % (12.0-15.0); WHITE BLOOD COUNT 9.1 x10^3/uL (4.8-10.8)
[2019-10-27 19:00] LABS: ALBUMIN 4.6 g/dL (3.2-5.5); ALBUMIN/GLOBULIN RATIO 1.2 (1.0-2.2); BILIRUBIN,TOTAL 0.7 mg/dL (0.2-1.0); CALCIUM 9.1 mg/dL (8.5-10.3); CREATININE 4.3 mg/dL (0.4-1.0); PHOSPHORUS 5.8 mg/dL (2.5-4.6); TOTAL PROTEIN 8.3 g/dL (6.7-8.2)
== END 2019-10-27 23:59 | disposition home or self-care (01) ==
LOC: LAB.WCP 14:59
PROVIDERS: ATTEND Specialist
DX: I12.0 Hypertensive chronic kidney disease with stage 5 chronic kidney disease or end stage renal disease (principal); N18.6 End stage renal disease
CPT/HCPCS: 36415; 80053; 84100; 85025

== ENCOUNTER 2019-11-07 09:57 | Outpatient (CLI) | payer MEDICARE, BC ==
[2019-11-07 12:52] LABS: BASOPHILS # (AUTO) 0.1 10^3/uL (0.0-0.1); BASOPHILS % (AUTO) 0.7 %; EOSINOPHILS # (AUTO) 0.3 10^3/uL (0.0-0.7); EOSINOPHILS % (AUTO) 3.8 %; HGB - HEMOGLOBIN 11.1 g/dL (12.0-16.0); LYMPHOCYTES # (AUTO) 1.4 10^3/uL (1.5-3.5); LYMPHOCYTES % (AUTO) 19.8 %; MEAN CORPUSCULAR HEMOGLOBIN 28.5 pg (27.0-31.0); MEAN CORPUSCULAR HGB CONC 33.8 g/dL (32.0-36.0); MEAN CORPUSCULAR VOLUME 84.3 fL (81.0-99.0); MEAN PLATELET VOLUME 9.6 fL (7.9-10.8); MONOCYTES # (AUTO) 0.4 10^3/uL (0.0-1.0); MONOCYTES % (AUTO) 5.7 %; NEUTROPHILS # (AUTO) 4.7 10^3/uL (1.5-6.6); NEUTROPHILS % (AUTO) 69.7 %; PLT - PLATELET COUNT 259 10^3/uL (130-450); RED BLOOD COUNT 3.89 10^6/uL (4.20-5.40); RED CELL DISTRIBUTION WIDTH 11.9 % (12.0-15.0); WHITE BLOOD COUNT 6.8 x10^3/uL (4.8-10.8)
[2019-11-07 12:59] LABS: ALBUMIN 4.2 g/dL (3.2-5.5); ALBUMIN/GLOBULIN RATIO 1.3 (1.0-2.2); BILIRUBIN,TOTAL 0.8 mg/dL (0.2-1.0); CALCIUM 9.1 mg/dL (8.5-10.3); CREATININE 3.8 mg/dL (0.4-1.0); PHOSPHORUS 3.8 mg/dL (2.5-4.6); TOTAL PROTEIN 7.5 g/dL (6.7-8.2)
== END 2019-11-07 23:59 | disposition home or self-care (01) ==
LOC: LAB.WCP 09:57
PROVIDERS: ATTEND Specialist
DX: I12.9 Hypertensive chronic kidney disease with stage 1 through stage 4 chronic kidney disease, or unspecified chronic kidney disease (principal); N18.6 End stage renal disease
CPT/HCPCS: 36415; 80053; 84100; 85025

== ENCOUNTER 2019-11-17 08:00 | Outpatient (CLI) | payer MEDICARE, BC ==
[2019-11-17 17:02] LABS: BASOPHILS # (AUTO) 0.1 10^3/uL (0.0-0.1); BASOPHILS % (AUTO) 0.8 %; EOSINOPHILS # (AUTO) 0.2 10^3/uL (0.0-0.7); EOSINOPHILS % (AUTO) 3.5 %; HGB - HEMOGLOBIN 11.8 g/dL (12.0-16.0); LYMPHOCYTES # (AUTO) 1.3 10^3/uL (1.5-3.5); LYMPHOCYTES % (AUTO) 21.2 %; MEAN CORPUSCULAR HGB CONC 33.4 g/dL (32.0-36.0); MEAN CORPUSCULAR VOLUME 89.8 fL (81.0-99.0); MEAN PLATELET VOLUME 9.5 fL (7.9-10.8); MONOCYTES # (AUTO) 0.6 10^3/uL (0.0-1.0); MONOCYTES % (AUTO) 9.5 %; NEUTROPHILS % (AUTO) 64.7 %; PLT - PLATELET COUNT 253 10^3/uL (130-450); RED BLOOD COUNT 3.93 10^6/uL (4.20-5.40); RED CELL DISTRIBUTION WIDTH 12.1 % (12.0-15.0); WHITE BLOOD COUNT 6.2 x10^3/uL (4.8-10.8)
[2019-11-17 17:16] LABS: ALBUMIN 4.3 g/dL (3.2-5.5); ALBUMIN/GLOBULIN RATIO 1.3 (1.0-2.2); BILIRUBIN,TOTAL 0.7 mg/dL (0.2-1.0); CALCIUM 9.1 mg/dL (8.5-10.3); CREATININE 4.6 mg/dL (0.4-1.0); PHOSPHORUS 4.6 mg/dL (2.5-4.6); TOTAL PROTEIN 7.6 g/dL (6.7-8.2)
== END 2019-11-17 23:59 | disposition home or self-care (01) ==
LOC: LAB.WCP 08:00
PROVIDERS: ATTEND Specialist
DX: I12.0 Hypertensive chronic kidney disease with stage 5 chronic kidney disease or end stage renal disease (principal); N18.6 End stage renal disease
CPT/HCPCS: 36415; 80053; 84100; 85025

== ENCOUNTER 2019-12-05 08:00 | Outpatient (CLI) | payer MEDICARE, BC ==
[2019-12-05 17:28] LABS: BASOPHILS # (AUTO) 0.1 10^3/uL (0.0-0.1); BASOPHILS % (AUTO) 1.1 %; EOSINOPHILS # (AUTO) 0.3 10^3/uL (0.0-0.7); EOSINOPHILS % (AUTO) 4.4 %; HGB - HEMOGLOBIN 12.6 g/dL (12.0-16.0); LYMPHOCYTES # (AUTO) 1.6 10^3/uL (1.5-3.5); LYMPHOCYTES % (AUTO) 24.6 %; MEAN CORPUSCULAR HEMOGLOBIN 29.2 pg (27.0-31.0); MEAN CORPUSCULAR HGB CONC 33.5 g/dL (32.0-36.0); MEAN CORPUSCULAR VOLUME 87.2 fL (81.0-99.0); MONOCYTES # (AUTO) 0.4 10^3/uL (0.0-1.0); MONOCYTES % (AUTO) 6.6 %; PLT - PLATELET COUNT 258 10^3/uL (130-450); RED BLOOD COUNT 4.31 10^6/uL (4.20-5.40); RED CELL DISTRIBUTION WIDTH 11.5 % (12.0-15.0); WHITE BLOOD COUNT 6.4 x10^3/uL (4.8-10.8)
[2019-12-05 17:51] LABS: ALBUMIN 4.3 g/dL (3.2-5.5); ALBUMIN/GLOBULIN RATIO 1.2 (1.0-2.2); BILIRUBIN,TOTAL 0.8 mg/dL (0.2-1.0); CALCIUM 8.8 mg/dL (8.5-10.3); CREATININE 4.8 mg/dL (0.4-1.0); PHOSPHORUS 6.3 mg/dL (2.5-4.6)
== END 2019-12-05 23:59 | disposition home or self-care (01) ==
LOC: LAB.WCP 08:00
PROVIDERS: ATTEND Specialist
DX: I12.0 Hypertensive chronic kidney disease with stage 5 chronic kidney disease or end stage renal disease (principal); N18.6 End stage renal disease
CPT/HCPCS: 36415; 80053; 84100; 85025

== ENCOUNTER 2019-12-19 14:23 | Outpatient (CLI) | payer MEDICARE, BC ==
[2019-12-19 18:07] LABS: BASOPHILS # (AUTO) 0.1 10^3/uL (0.0-0.1); BASOPHILS % (AUTO) 0.9 %; EOSINOPHILS # (AUTO) 0.4 10^3/uL (0.0-0.7); EOSINOPHILS % (AUTO) 5.6 %; LYMPHOCYTES # (AUTO) 1.5 10^3/uL (1.5-3.5); LYMPHOCYTES % (AUTO) 22.3 %; MEAN CORPUSCULAR HGB CONC 33.2 g/dL (32.0-36.0); MEAN CORPUSCULAR VOLUME 87.5 fL (81.0-99.0); MEAN PLATELET VOLUME 9.8 fL (7.9-10.8); MONOCYTES # (AUTO) 0.4 10^3/uL (0.0-1.0); MONOCYTES % (AUTO) 5.6 %; NEUTROPHILS # (AUTO) 4.3 10^3/uL (1.5-6.6); NEUTROPHILS % (AUTO) 65.3 %; PLT - PLATELET COUNT 240 10^3/uL (130-450); RED BLOOD COUNT 4.48 10^6/uL (4.20-5.40); RED CELL DISTRIBUTION WIDTH 11.5 % (12.0-15.0); WHITE BLOOD COUNT 6.6 x10^3/uL (4.8-10.8)
[2019-12-19 18:18] LABS: ALBUMIN 4.4 g/dL (3.2-5.5); ALBUMIN/GLOBULIN RATIO 1.3 (1.0-2.2); BILIRUBIN,TOTAL 1.1 mg/dL (0.2-1.0); PHOSPHORUS 4.6 mg/dL (2.5-4.6); TOTAL PROTEIN 7.9 g/dL (6.7-8.2)
[2019-12-19 18:55] LABS: CREATININE 4.7 mg/dL (0.4-1.0)
== END 2019-12-19 23:59 | disposition home or self-care (01) ==
LOC: LAB.WCP 14:23
PROVIDERS: ATTEND Specialist
DX: N18.6 End stage renal disease (principal); I10 Essential (primary) hypertension
CPT/HCPCS: 36415; 80053; 84100; 85025

== ENCOUNTER 2020-01-04 08:00 | Outpatient (CLI) | payer MEDICARE, BC ==
[2020-01-04 18:03] LABS: BASOPHILS # (AUTO) 0.1 10^3/uL (0.0-0.1); BASOPHILS % (AUTO) 0.9 %; EOSINOPHILS # (AUTO) 0.4 10^3/uL (0.0-0.7); EOSINOPHILS % (AUTO) 6.3 %; HGB - HEMOGLOBIN 13.2 g/dL (12.0-16.0); LYMPHOCYTES # (AUTO) 1.2 10^3/uL (1.5-3.5); LYMPHOCYTES % (AUTO) 20.9 %; MEAN CORPUSCULAR HEMOGLOBIN 29.8 pg (27.0-31.0); MEAN CORPUSCULAR HGB CONC 34.5 g/dL (32.0-36.0); MEAN CORPUSCULAR VOLUME 86.5 fL (81.0-99.0); MEAN PLATELET VOLUME 9.5 fL (7.9-10.8); MONOCYTES # (AUTO) 0.4 10^3/uL (0.0-1.0); MONOCYTES % (AUTO) 6.2 %; NEUTROPHILS # (AUTO) 3.7 10^3/uL (1.5-6.6); NEUTROPHILS % (AUTO) 65.5 %; PLT - PLATELET COUNT 288 10^3/uL (130-450); RED BLOOD COUNT 4.43 10^6/uL (4.20-5.40); RED CELL DISTRIBUTION WIDTH 11.3 % (12.0-15.0); WHITE BLOOD COUNT 5.7 x10^3/uL (4.8-10.8)
[2020-01-04 18:19] LABS: ALBUMIN 4.3 g/dL (3.2-5.5); ALBUMIN/GLOBULIN RATIO 1.2 (1.0-2.2); BILIRUBIN,TOTAL 0.9 mg/dL (0.2-1.0); CALCIUM 9.4 mg/dL (8.5-10.3); CREATININE 4.5 mg/dL (0.4-1.0); PHOSPHORUS 4.6 mg/dL (2.5-4.6)
== END 2020-01-04 23:59 | disposition home or self-care (01) ==
LOC: LAB.WCP 08:00
PROVIDERS: ATTEND Specialist
DX: I12.9 Hypertensive chronic kidney disease with stage 1 through stage 4 chronic kidney disease, or unspecified chronic kidney disease (principal); N18.6 End stage renal disease
CPT/HCPCS: 36415; 80053; 84100; 85025

== ENCOUNTER 2020-01-31 14:10 | Outpatient (CLI) | payer MEDICARE, BC ==
[2020-01-31 18:15] LABS: BASOPHILS # (AUTO) 0.1 10^3/uL (0.0-0.1); BASOPHILS % (AUTO) 0.7 %; EOSINOPHILS # (AUTO) 0.3 10^3/uL (0.0-0.7); EOSINOPHILS % (AUTO) 2.2 %; HGB - HEMOGLOBIN 10.7 g/dL (12.0-16.0); LYMPHOCYTES # (AUTO) 1.2 10^3/uL (1.5-3.5); LYMPHOCYTES % (AUTO) 10.6 %; MEAN CORPUSCULAR HGB CONC 33.3 g/dL (32.0-36.0); MEAN CORPUSCULAR VOLUME 89.9 fL (81.0-99.0); MEAN PLATELET VOLUME 9.7 fL (7.9-10.8); MONOCYTES # (AUTO) 0.6 10^3/uL (0.0-1.0); NEUTROPHILS # (AUTO) 9.4 10^3/uL (1.5-6.6); NEUTROPHILS % (AUTO) 81.2 %; PLT - PLATELET COUNT 327 10^3/uL (130-450); RED BLOOD COUNT 3.57 10^6/uL (4.20-5.40); WHITE BLOOD COUNT 11.6 x10^3/uL (4.8-10.8)
[2020-01-31 18:28] LABS: ALBUMIN 3.7 g/dL (3.2-5.5); ALBUMIN/GLOBULIN RATIO 1.2 (1.0-2.2); BILIRUBIN,TOTAL 0.5 mg/dL (0.2-1.0); CALCIUM 8.8 mg/dL (8.5-10.3); PHOSPHORUS 4.7 mg/dL (2.5-4.6); TOTAL PROTEIN 6.9 g/dL (6.7-8.2)
== END 2020-01-31 23:59 | disposition home or self-care (01) ==
LOC: LAB.WCP 14:10
PROVIDERS: ATTEND Specialist
DX: I12.0 Hypertensive chronic kidney disease with stage 5 chronic kidney disease or end stage renal disease (principal); N18.6 End stage renal disease
CPT/HCPCS: 36415; 80053; 84100; 85025

== ENCOUNTER 2020-01-31 18:37 | Outpatient (CLI) | payer MEDICARE, BC ==
--- NOTE | 2020-01-31 22:53 | Ultrasound Report ---
Reason: R FLANK PX Procedure Date: 01/31/2020 Accession Number: [id number] / [id number] Procedure: US - Retroperitoneal CPT Code: Final Report FULL RESULT: PROCEDURE: Retroperitoneal INDICATIONS: R FLANK PX TECHNIQUE: Real-time scanning was performed of the retroperitoneal organs, with image documentation. COMPARISON: Ultrasound dated 11/25/[address] abdomen dated 12/16/2016. FINDINGS: Kidneys: Kidneys are normal in size. Right kidney measures 10.9 cm long; left kidney measures 9.0 cm long. Right renal cortical thickness is 1.2 cm; left renal cortical thickness is 1.4 cm. No solid masses or sonographic evidence for nephrolithiasis. However, prior CT demonstrated presence of bilateral nephrolithiasis. The kidneys demonstrate diffusely increased echogenic parenchyma. There is bilateral hydronephrosis moderate on the right and mild on the left. Urinary bladder: Prevoid bladder volume measures 62 mL. There is no post void residual volume. Bilateral ureteral jets were visualized. Miscellaneous: No free abdominal fluid. IMPRESSION: 1. Bilateral hydronephrosis more pronounced on the right. No urinary calculi identified sonographically on today's study. Bilateral ureteral jets were visualized. 2. Diffusely echogenic renal parenchyma compatible with chronic medical renal disease. Reviewed by: Louie Rangel MD on 01/31/2020 10:52 PM PDT Approved by: Louie Rangel MD on 01/31/2020 10:52 PM PDT Station ID: [id number]
== END 2020-01-31 18:38 | disposition home or self-care (01) ==
LOC: DI 18:37
PROVIDERS: ATTEND Family Medicine
DX: N13.30 Unspecified hydronephrosis (principal); I12.0 Hypertensive chronic kidney disease with stage 5 chronic kidney disease or end stage renal disease; N18.6 End stage renal disease
CPT/HCPCS: 36415; 76770; 80053; 84100; 85025

== ENCOUNTER 2020-02-01 13:03 | Outpatient (CLI) | payer MEDICARE, BC ==
--- NOTE | 2020-02-01 14:04 | CT Report ---
Reason: HYDRONEPHROSIS/RIGHT FLANK PAIN Procedure Date: 02/01/2020 Accession Number: [id number] / [id number] Procedure: CT - Abdomen/Pelvis WO CPT Code: Final Report FULL RESULT: PROCEDURE: Abdomen/Pelvis WO INDICATIONS: HYDRONEPHROSIS/RIGHT FLANK PAIN TECHNIQUE: Noncontrast 5 mm thick sections acquired from the diaphragms to the symphysis. 5 mm coronal and sagittal reformats were then performed. For radiation dose reduction, the following was used: automated exposure control, adjustment of mA and/or kV according to patient size. COMPARISON: CT abdomen with and without contrast dated 12/16/2016, renal ultrasound dated 01/31/2020. FINDINGS: Image quality: Excellent. Lung bases: Lung bases are clear. Heart size is normal. Urinary system: Right kidney: Moderate hydronephrosis. Mild perinephric stranding. 3 mm nonobstructing lower pole stone. Right ureter: Obstructing 4 mm stone in the proximal ureter at the level of L3-L4. Left kidney: At least four 3 mm or less nonobstructing renal stones. No hydronephrosis. Left ureter: Unremarkable. Bladder wall thickness is normal; no calcified bladder stones. Other solid organs: Liver and spleen are normal in size. Gallbladder is unremarkable. Pancreas is normal in contours. No adrenal nodules. Peritoneum and bowel: Unenhanced bowel loops demonstrate normal wall thickness and caliber. Minimal free pelvic fluid. No free air. No abscess. A peritoneal catheter coils in the pelvis. Nodes and vessels: No retroperitoneal or mesenteric adenopathy by size criteria. Aorta and inferior vena cava are normal in caliber. Abdominal wall: No ventral hernias. Pelvis: No free pelvic fluid. No inguinal hernias or adenopathy. Bones: No suspicious bony lesions. No vertebral body compression fractures. IMPRESSION: 1. A 4 mm stone obstructs the proximal right ureter resulting in moderate right hydronephrosis. 2. Bilateral nonobstructing renal stones. 3. Peritoneal catheter in place. Minimal free pelvic fluid. Reviewed by: Akira Chiu MD on 02/01/2020 2:03 PM PDT Approved by: Akira Chiu MD on 02/01/2020 2:03 PM PDT Station ID: [id number]
== END 2020-02-01 13:04 | disposition home or self-care (01) ==
LOC: DI 13:03
PROVIDERS: ATTEND Family Medicine
DX: N13.2 Hydronephrosis with renal and ureteral calculous obstruction (principal); Z96.89 Presence of other specified functional implants
CPT/HCPCS: 74176

== ENCOUNTER 2020-02-06 11:34 | Outpatient (CLI) | payer MEDICARE, BC | END 2020-02-06 11:35 | disposition short-term general hospital (02) | LOC: EMS 11:34 | PROVIDERS: ATTEND Surgery | DX: R51 Headache (principal); H53.9 Unspecified visual disturbance; R20.0 Anesthesia of skin; R03.0 Elevated blood-pressure reading, without diagnosis of hypertension | CPT/HCPCS: A0425; A0427 ==

== ENCOUNTER 2020-02-10 15:01 | Outpatient (CLI) | payer MEDICARE, BC ==
[2020-02-10 18:07] LABS: BASOPHILS # (AUTO) 0.1 10^3/uL (0.0-0.1); BASOPHILS % (AUTO) 0.8 %; EOSINOPHILS # (AUTO) 0.4 10^3/uL (0.0-0.7); EOSINOPHILS % (AUTO) 5.5 %; HGB - HEMOGLOBIN 12.4 g/dL (12.0-16.0); LYMPHOCYTES # (AUTO) 1.8 10^3/uL (1.5-3.5); LYMPHOCYTES % (AUTO) 23.8 %; MEAN CORPUSCULAR HEMOGLOBIN 29.2 pg (27.0-31.0); MEAN CORPUSCULAR HGB CONC 33.3 g/dL (32.0-36.0); MEAN CORPUSCULAR VOLUME 87.5 fL (81.0-99.0); MONOCYTES # (AUTO) 0.6 10^3/uL (0.0-1.0); MONOCYTES % (AUTO) 8.1 %; NEUTROPHILS # (AUTO) 4.7 10^3/uL (1.5-6.6); NEUTROPHILS % (AUTO) 61.5 %; PLT - PLATELET COUNT 344 10^3/uL (130-450); RED BLOOD COUNT 4.25 10^6/uL (4.20-5.40); RED CELL DISTRIBUTION WIDTH 12.8 % (12.0-15.0); WHITE BLOOD COUNT 7.7 x10^3/uL (4.8-10.8)
[2020-02-10 18:27] LABS: CALCIUM 8.8 mg/dL (8.5-10.3); CREATININE 6.6 mg/dL (0.4-1.0)
[2020-02-11 13:14] LABS: HEPATITIS B SURFACE ANTIGEN NON-REACTIVE (NON-REACTIVE)
== END 2020-02-10 23:59 | disposition home or self-care (01) ==
LOC: LAB.WCP 15:01
PROVIDERS: ATTEND Specialist
DX: I12.0 Hypertensive chronic kidney disease with stage 5 chronic kidney disease or end stage renal disease (principal); N18.5 Chronic kidney disease, stage 5
CPT/HCPCS: 36415; 80048; 85025; 87340

== ENCOUNTER 2020-06-19 16:24 | Outpatient (CLI) | payer MEDICARE, BC | END 2020-06-19 16:25 | disposition critical access hospital (66) | LOC: EMS 16:24 | PROVIDERS: ATTEND Surgery | DX: R47.81 Slurred speech (principal); R29.810 Facial weakness; R46.4 Slowness and poor responsiveness | CPT/HCPCS: A0425; A0427 ==

== ENCOUNTER 2020-06-19 16:37 | Emergency (ER) | payer MEDICARE, BC ==
--- NOTE | 2020-06-19 16:43 | ED Physician Documentation ---
PD HPI FOCAL NEURO - Stated complaint Stated Complaint: CODE STROKE - History obtained from History obtained from: Patient, EMS - History of Present Illness Timing - onset: Today Timing - duration: Hours (1) Timing - details: Abrupt onset, Still present Severity of deficit: Severe Weakness: Arm, Hand, Leg, Foot, Left Associated symptoms: Headache Contributing factors: positive: Other (dialysis and hypertension) Baseline status: positive: A&OX3, ambulatory, indep Similar symptoms before: Diagnosis (CVA) Recently seen: Other (regular peritoneal dialysis) - Additional information Additional information: 35 y/o female with a history of uncontrolled hypertension who is on dialysis has suddenly become unable to use her left side or speak. This occurred about one hour prior to her arrival here. She has had similar episodes from blood pressure spikes previously and has been treated for CVA X 2 in the past year. The patient is unable to provide history and history is from parents who are durable power of bankruptcy attorney for medical decision making. Review of Systems Unable to obtain: Unresponsive PD PAST MEDICAL HISTORY - Past Medical History Cardiovascular: Hypertension (uncontrolled) Respiratory: None Neuro: CVA Endocrine/Autoimmune: Other GI: None : Dialysis (peritoneal), Kidney stones HEENT: None Psych: None Musculoskeletal: None Derm: None - Past Surgical History Past Surgical History: Yes - Present Medications Home Medications: Ambulatory Orders Medication Instructions Recorded Confirmed cloNIDine HCL [Clonidine HCl] 0.1 mg PO TID 07/05/14 08/19/16 Oxycodone HCl/Acetaminophen 1 each PO DAILY PRN 07/06/14 08/19/16 [Percocet 5-325 mg Tablet] atenoloL [Atenolol] 100 mg PO TID 08/19/16 08/19/16 lisinopriL [Lisinopril] 40 mg PO DAILY 08/19/16 08/19/16 Amiloride HCl 5 mg PO 11/25/17 Clonidine HCl [Catapres] 0.2 mg PO 11/25/17 Famotidine [Pepcid] 20 mg PO ONCE #30 tablet 11/25/17 Felodipine [Felodipine ER] 10 mg PO 11/25/17 Furosemide [Lasix] 20 mg PO ONCE 11/25/17 11/25/17 Metoclopramide [Reglan] 10 mg PO Q6H 11/25/17 11/25/17 Ondansetron [Zuplenz] 4 mg PO 11/25/17 Potassium Chloride 40 meq PO 11/25/17 Prazosin [Minipress] 5 mg PO DAILY 11/25/17 11/25/17 Promethazine [Phenergan] 25 mg PO Q6H PRN #30 tab 11/25/17 Sucralfate 1 gm PO QID #20 tablet 11/25/17 amLODIPine [Norvasc] 10 mg PO DAILY 11/25/17 11/25/17 hydrALAZINE [Apresoline] 50 mg PO 11/25/17 raNITIdine [Zantac] 150 mg PO DAILY 11/25/17 11/25/17 - Allergies Allergies/Adverse Reactions: Allergies Allergy/AdvReac Type Severity Reaction Status Date / Time albuterol Allergy Dizziness Verified 06/19/20 17:26 clonidine [From Catapres] Allergy Unknown Verified 06/19/20 17:26 prednisone Allergy Unknown Verified 06/19/20 17:26 sumatriptan [From Imitrex] Allergy Unknown Verified 06/19/20 17:26 topiramate [From Topamax] Allergy Unknown Verified 06/19/20 17:26 - Social History Does the pt smoke?: No Smoking Status: Never smoker Does the pt drink ETOH?: No Does the pt have substance abuse?: No - Immunizations Immunizations are current?: Yes - POLST Patient has POLST: No PD ED PE NORMAL - Vitals Vital signs reviewed: Yes (malignant hypertension) - General General: No acute distress, Well developed/nourished, Other (laying supine eyes closed not responding. moves the right side but not the left. ) - HEENT HEENT: Atraumatic, PERRL - Neck Neck: Supple, no meningeal sign - Cardiac Cardiac: RRR, No murmur - Respiratory Respiratory: No respiratory distress, Clear bilaterally - Abdomen Abdomen: Soft, Non tender, Other (dialysis port in place without inflamation ) - Derm Derm: Normal color, Warm and dry, No rash - Extremities Extremities: No deformity, No edema - Neuro Eye Opening: To Voice Motor: Obeys Commands Verbal: Confused GCS Score: 13 NIHSS - Level of Consciousness Level of consciousness: (2) Not alert, requires repeated stimulation to attend LOC Questions: (2) Answers neither correct LOC Commands: (1) Performs one correctly - Gaze Best Gaze: (1) Partial gaze palsy - Visual Visual: (0) No loss - Facial Palsy Facial Palsy: (2) Partial paralysis - Motor Arms (both separate) Motor Arm (right): (0) No drift Motor Arm (left): (4) No movement - Motor Legs (both separate) Motor Leg (right): (0) No drift Motor Leg (left): (4) No movement - Limb Ataxia Limb Ataxia: (2) Present in 2 limbs - Sensory Sensory: (1) [id number]-[id number] loss - Best Language Best Language: (1) [id number] - Dysarthria Dysarthria: (1) [id number]-nu-tmtrgbow dysarthria - Extinction and Inattention (formally neg Extinction and inattention: (2) Profound aleah-inattention or extinction to more than one modality - Total Score/Results Total Score/Result: 23 Results - Vitals Vitals: Vital Signs - 24 hr 06/19/20 06/19/20 06/19/20 16:57 17:00 17:26 Temperature 36.9 C Heart Rate 58 L 54 L 85 Respiratory 17 11 L 14 Rate Blood Pressure 270/145 H 262/186 H 245/130 H O2 Saturation 99 100 85 L 06/19/20 17:37 Temperature Heart Rate 54 L Respiratory 14 Rate Blood Pressure 198/110 H O2 Saturation 100 Oxygen O2 Source Room air - Labs Labs: Laboratory Tests 06/19/20 06/19/20 06/19/20 16:55 16:55 16:55 WBC 12.5 H RBC 4.19 L Hgb 12.1 Hct 35.1 L MCV 83.8 MCH 28.9 MCHC 34.5 RDW 11.9 L Plt Count 340 MPV 9.5 Neut # (Auto) 7.8 H Lymph # (Auto) 3.1 [place] # (Auto) 0.9 Eos # (Auto) 0.5 Baso # (Auto) 0.1 Absolute Nucleated RBC 0.00 Nucleated RBC % 0.0 PT 12.2 INR 1.1 Sodium 138 Potassium 2.8 L Chloride 105 Carbon Dioxide 19 L Anion Gap 14.0 H BUN 61 H Creatinine 5.5 H Estimated GFR (MDRD) 9 L Glucose 169 H Calcium 8.9 Total Bilirubin 0.7 AST 14 ALT 16 Alkaline Phosphatase 70 Total Protein 7.8 Albumin 3.9 Globulin 3.9 Albumin/Globulin Ratio 1.0 Lipase 27 - Rads (name of study) CT head without Radiology: Prelim report reviewed (Impression: Very large intraparenchymal hematoma in the right basal ganglion with severe mass effect including complete effacement of the right lateral ventricle and third ventricle with 9 mm right to left midline shift. Findings were discussed with Dr. Wolfe.), EMP read indepedently, See rad report PD MEDICAL DECISION MAKING - ED course Complexity details: reviewed old records, reviewed results, re-evaluated patient, considered differential, d/w patient, d/w family ED course: 35-year-old female with uncontrolled hypertension who is on peritoneal dialysis has had a catastrophic stroke today with intraparenchymal hemorrhage causing a left hemiparesis. The patient on arrival has minimal interaction with us and with time interacts more and will open her eyes to voice she will indicates she wants to sit up and she will be able to follow commands with squeezing with her right hand. She does have some vomiting and she has malignant hypertension.A Cardene drip is begun patient is administered Zofran the stroke center is consulted and the neurosurgeon Dr. Meek will be accepting the patient at [facility]. Dr. Crockett (neuro intensive care) and Dr. Méndez (neurology) are also involved in patient's case. Here in the emergency department the patient is blood pressure does respond to the Cardene drip and we initially considered intubation of the patient when she arrived here as her Leticia Coma Score appeared low she is able to follow commands she is able to make an intelligible voice and she will open her eyes to voice. We have elected not to intubate the patient for transport. Transport team will monitor the patient's level of consciousness. Departure - Departure Disposition: 02 Transfer Acute Care Hosp Clinical Impression: Hypertensive emergency, Intracranial hemorrhage Condition: Critical
[2020-06-19] MEDS ORDERED: NICARDIPINE HCL 25 MG in SODIUM CHLORIDE 0.9% 240 ML IV STA (16:57)
--- NOTE | 2020-06-19 16:58 | CT Report ---
PROCEDURE: HEAD WO INDICATIONS: Left hemiparesis TECHNIQUE: Noncontrast 4.5 mm thick angled axial sections acquired from the foramen magnum to the vertex. For r adiation dose reduction, the following was used: automated exposure control, adjustment of mA and/or kV according to patient size. COMPARISON: None. FINDINGS: There is a large intraparenchymal hematoma in the right basal ganglia. The hematoma measures at least 6.5 x 3.6 cm maximum axial dimension and 4.7 cm maximum craniocaudal dimension. And hematoma extends medially to communicate with the ventricular system. There is moderate to severe mass effect with ap parent complete effacement of the right lateral ventricle and essentially complete effacement of the third ventricle. There may be developing entrapment of the left lateral ventricle. The aqueduct and f ourth ventricle are patent. There is no significant cisternal effacement identified at this time. IMPRESSION: Very large intraparenchymal hematoma in the right basal ganglia with severe mass effect including com plete effacement of the right lateral ventricle and third ventricle with 9 mm right to left midline s hift. Findings were discussed with Dr. Wolfe. Reviewed by: Conrad Vickers MD on 06/19/2020 4:56 PM PDT Approved by: Conrad Vickers MD on 06/19/2020 4:56 PM PDT Station ID: [id number]
[2020-06-19 17:03] LABS: BASOPHILS # (AUTO) 0.1 10^3/uL (0.0-0.1); BASOPHILS % (AUTO) 1.1 %; EOSINOPHILS # (AUTO) 0.5 10^3/uL (0.0-0.7); HGB - HEMOGLOBIN 12.1 g/dL (12.0-16.0); LYMPHOCYTES # (AUTO) 3.1 10^3/uL (1.5-3.5); MEAN CORPUSCULAR HEMOGLOBIN 28.9 pg (27.0-31.0); MEAN CORPUSCULAR HGB CONC 34.5 g/dL (32.0-36.0); MEAN CORPUSCULAR VOLUME 83.8 fL (81.0-99.0); MEAN PLATELET VOLUME 9.5 fL (7.9-10.8); MONOCYTES # (AUTO) 0.9 10^3/uL (0.0-1.0); MONOCYTES % (AUTO) 6.9 %; NEUTROPHILS # (AUTO) 7.8 10^3/uL (1.5-6.6); NEUTROPHILS % (AUTO) 62.5 %; PLT - PLATELET COUNT 340 10^3/uL (130-450); RED BLOOD COUNT 4.19 10^6/uL (4.20-5.40); RED CELL DISTRIBUTION WIDTH 11.9 % (12.0-15.0); WHITE BLOOD COUNT 12.5 x10^3/uL (4.8-10.8)
[2020-06-19 17:17] LABS: ALBUMIN 3.9 g/dL (3.2-5.5); BILIRUBIN,TOTAL 0.7 mg/dL (0.2-1.0); CALCIUM 8.9 mg/dL (8.5-10.3); CREATININE 5.5 mg/dL (0.4-1.0); TOTAL PROTEIN 7.8 g/dL (6.7-8.2)
[2020-06-19 17:20] LABS: INR 1.1 (0.8-1.2); PT - PROTHROMBIN TIME 12.2 secs (9.9-12.6)
[2020-06-19] MEDS ORDERED: ONDANSETRON 4 MG/2 ML VIAL IVP STA (17:26)
[2020-06-19 18:01] VITALS: BP 198/110
== END 2020-06-19 17:37 | disposition short-term general hospital (02) ==
LOC: EDUNIT# → ED 16:37
DX: I16.1 Hypertensive emergency (principal); I62.9 Nontraumatic intracranial hemorrhage, unspecified; G81.94 Hemiplegia, unspecified affecting left nondominant side; I13.10 Hypertensive heart and chronic kidney disease without heart failure, with stage 1 through stage 4 chronic kidney disease, or unspecified chronic kidney disease; N18.9 Chronic kidney disease, unspecified; Z99.2 Dependence on renal dialysis; R94.31 Abnormal electrocardiogram [ECG] [EKG]
CPT/HCPCS: 70450; 80053; 83690; 85025; 85610; 93005; 96374; 96375; 99285